=== PATIENT | male | born 1960 | race Caucasian/White ===

== ENCOUNTER → 2016-03-21 | Outpatient (REF) | payer MEDICARE, MEDICAID ==
[~2016-03-21] MED LIST: CYMB1CAP PO; FLEXERIL PO; IBUP600T OR; NEUR100C OR; PENN1.5S2 TOP; TYLE325T5 PO
== END ==
LOC: M SFHCSACK 08:51
PROVIDERS: ATTEND Physician Assistant
DX: Z11.59 Encounter for screening for other viral diseases (principal)

== ENCOUNTER 2016-09-30 17:54 | Emergency (ER) | payer MEDICARE, MEDICAID ==
[~2016-09-30] VITALS: Ht 165.1 cm; Wt 72.7 kg
[2016-09-30 19:22] LABS: ANION GAP 6 MEQ/L (8-16); BLOOD UREA NITROGEN 18 MG/DL (7-18); CALCIUM LEVEL 8.4 MG/DL (8.5-10.1); CARBON DIOXIDE LEVEL 29 MEQ/L (21-32); CHLORIDE LEVEL 106 MEQ/L (98-107); CREATININE FOR GFR 0.96 MG/DL (0.70-1.30); FREE T4 1.13 NG/DL (0.76-1.46); GLOMERULAR FILTRATION RATE > 60.0 (>56); GLUCOSE, FASTING 135 MG/DL (70-105); MAGNESIUM LEVEL 1.8 MG/DL (1.8-2.4); POTASSIUM SERUM 3.8 MEQ/L (3.5-5.1); SODIUM LEVEL 141 MEQ/L (136-145)
[2016-09-30 19:34] LABS: ADD MANUAL DIFFER YES; MEAN CORPUSCULAR HEMOGLOBIN 29.6 pg (27.0-33.0); MEAN CORPUSCULAR HGB CONC 35.3 g/dl (32.0-36.5); PLATELET COUNT, AUTOMATED 165 k/mm3 (150-450); RED CELL DISTRIBUTION WIDTH 13.8 % (11.5-14.5); WHITE BLOOD COUNT 6.6 K/mm3 (4.0-10.0)
[2016-09-30 20:11] LABS: EOSINOPHILS 1 % (0-5)
[2016-09-30 20:15] LABS: PLATELET CLUMPS MODERATE AMT; SMUDGE CELLS 1+
[2016-09-30 21:09] VITALS: BP 129/72
--- NOTE | 2016-09-30 22:10 | REP ---
CHEST, TWO VIEWS: HISTORY: Syncope. COMPARISON: 12/15/2014 The lungs are clear. The heart is normal in size. The pulmonary vasculature is normal in appearance. The bony structure is intact. IMPRESSION: No acute disease. Signed by Michael Fish MD 10/01/2016 08:23 A
--- NOTE | 2016-10-02 08:26 | ECGEPIP ---
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
== END 2016-09-30 21:44 | disposition home or self-care (01) ==
LOC: M ED 17:54
DX: R55 Syncope and collapse (principal); R06.02 Shortness of breath; J45.909 Unspecified asthma, uncomplicated; F32.9 Major depressive disorder, single episode, unspecified; M19.90 Unspecified osteoarthritis, unspecified site; F10.20 Alcohol dependence, uncomplicated; M54.30 Sciatica, unspecified side; M25.561 Pain in right knee; G89.29 Other chronic pain; Z87.891 Personal history of nicotine dependence; Z88.8 Allergy status to other drugs, medicaments and biological substances

== ENCOUNTER → 2016-10-27 | Outpatient (CLI) | payer MEDICARE, MEDICAID ==
[2016-10-27 10:43] LABS: BASO % 0.5 % (0.0-1.0); EOS # 0.1 K/mm3 (0.0-0.50); EOS % 2.2 % (0.0-3.0); LARGE UNSTAINED CELL # 0.2 K/mm3 (0.0-0.4); LARGE UNSTAINED CELL % 3.3 % (0.0-4.0); LYMPH # 1.8 K/mm3 (1.5-4.5); LYMPH % 39.2 % (24.0-44.0); MEAN CORPUSCULAR HEMOGLOBIN 30.1 pg (27.0-33.0); MEAN CORPUSCULAR HGB CONC 35.7 g/dl (32.0-36.5); MEAN CORPUSCULAR VOLUME 84.4 fl (80.0-96.0); MONO # 0.4 K/mm3 (0.0-0.8); MONO % 7.6 % (0.0-5.0); NEUTROPHILS # 2.2 K/mm3 (1.8-7.7); NEUTROPHILS % 47.2 % (36.0-66.0); PLATELET COUNT, AUTOMATED 161 k/mm3 (150-450); RED CELL DISTRIBUTION WIDTH 13.2 % (11.5-14.5); WHITE BLOOD COUNT 4.6 K/mm3 (4.0-10.0)
[2016-10-27 11:09] LABS: ALBUMIN 3.4 GM/DL (3.2-5.2); ALBUMIN/GLOBULIN RATIO 0.97 (1.00-1.93); ALKALINE PHOSPHATASE 93 U/L (45-117); ALT/SGPT 20 U/L (12-78); ANION GAP 5 MEQ/L (8-16); AST/SGOT 14 U/L (15-37); BILIRUBIN,TOTAL 0.2 MG/DL (0.2-1.0); BLOOD UREA NITROGEN 19 MG/DL (7-18); CALCIUM LEVEL 8.9 MG/DL (8.5-10.1); CARBON DIOXIDE LEVEL 32 MEQ/L (21-32); CHLORIDE LEVEL 105 MEQ/L (98-107); CHOLESTEROL LEVEL 155 MG/DL (<200); CREATININE FOR GFR 0.73 MG/DL (0.70-1.30); FREE T4 1.14 NG/DL (0.76-1.46); GLOMERULAR FILTRATION RATE > 60.0 (>56); GLUCOSE, FASTING 86 MG/DL (70-105); POTASSIUM SERUM 4.8 MEQ/L (3.5-5.1); SODIUM LEVEL 142 MEQ/L (136-145); TOTAL PROTEIN 6.9 GM/DL (6.4-8.2); TRIGLYCERIDES LEVEL 275 MG/DL (<150)
== END ==
LOC: M LAB 09:27
PROVIDERS: ATTEND Physician Assistant
DX: F32.9 Major depressive disorder, single episode, unspecified (principal); E78.00 Pure hypercholesterolemia, unspecified

== ENCOUNTER → 2017-01-02 | Outpatient (CLI) | payer MEDICARE, MEDICAID ==
[2017-01-02 09:47] LABS: BASO % 0.6 % (0.0-1.0); EOS # 0.1 10^3/uL (0.0-0.50); IMMATURE GRANULOCYTE % 0.2 % (0-0); LYMPH # 1.4 10^3/uL (1.5-4.5); LYMPH % 30.7 % (24.0-44.0); MEAN CORPUSCULAR HEMOGLOBIN 28.3 pg (27.0-33.0); MEAN CORPUSCULAR HGB CONC 33.9 g/dl (32.0-36.5); MEAN CORPUSCULAR VOLUME 83.6 fl (80.0-96.0); MONO # 0.5 10^3/uL (0.0-0.8); MONO % 10.6 % (0.0-5.0); NEUTROPHILS # 2.5 10^3/uL (1.8-7.7); NEUTROPHILS % 54.9 % (36.0-66.0); PLATELET COUNT, AUTOMATED 146 10^3/uL (150-450); RED CELL DISTRIBUTION WIDTH 13.8 % (11.5-14.5); WHITE BLOOD COUNT 4.6 10^3/uL (4.0-10.0)
[2017-01-02 10:30] LABS: ALBUMIN 3.5 GM/DL (3.2-5.2); ALBUMIN/GLOBULIN RATIO 1.03 (1.00-1.93); ALKALINE PHOSPHATASE 86 U/L (45-117); ALT/SGPT 17 U/L (12-78); ANION GAP 5 MEQ/L (8-16); AST/SGOT 14 U/L (7-37); BILIRUBIN,TOTAL 0.4 MG/DL (0.2-1.0); BLOOD UREA NITROGEN 16 MG/DL (7-18); CALCIUM LEVEL 8.9 MG/DL (8.5-10.1); CARBON DIOXIDE LEVEL 31 MEQ/L (21-32); CHLORIDE LEVEL 102 MEQ/L (98-107); CHOLESTEROL LEVEL 153 MG/DL (<200); CREATININE FOR GFR 0.89 MG/DL (0.70-1.30); FREE T4 1.18 NG/DL (0.76-1.46); GLOMERULAR FILTRATION RATE > 60.0 (>56); GLUCOSE, FASTING 83 MG/DL (70-105); POTASSIUM SERUM 4.5 MEQ/L (3.5-5.1); SODIUM LEVEL 138 MEQ/L (136-145); TOTAL PROTEIN 6.9 GM/DL (6.4-8.2); TRIGLYCERIDES LEVEL 151 MG/DL (<150)
== END ==
LOC: M LAB 08:43
PROVIDERS: ATTEND Physician Assistant
DX: Z13.21 Encounter for screening for nutritional disorder (principal); Z13.220 Encounter for screening for lipoid disorders; Z13.29 Encounter for screening for other suspected endocrine disorder; F32.9 Major depressive disorder, single episode, unspecified

== ENCOUNTER → 2017-06-06 | Outpatient (CLI) | payer MEDICARE, MEDICAID ==
[2017-06-06 09:21] LABS: ALBUMIN 3.9 GM/DL (3.2-5.2); ALKALINE PHOSPHATASE 90 U/L (45-117); ALT/SGPT 19 U/L (12-78); ANION GAP 6 MEQ/L (8-16); AST/SGOT 16 U/L (7-37); BILIRUBIN,TOTAL 0.3 MG/DL (0.2-1.0); BLOOD UREA NITROGEN 22 MG/DL (7-18); CALCIUM LEVEL 8.4 MG/DL (8.5-10.1); CARBON DIOXIDE LEVEL 30 MEQ/L (21-32); CHLORIDE LEVEL 106 MEQ/L (98-107); CHOLESTEROL LEVEL 193 MG/DL (<200); CHOLESTEROL RISK RATIO 4.595 (<5); CREATININE FOR GFR 0.83 MG/DL (0.70-1.30); GLOMERULAR FILTRATION RATE > 60.0 (>56); GLUCOSE, FASTING 90 MG/DL (70-100); HDL CHOLESTEROL 42 MG/DL (>40); LDL CHOLESTEROL 119.8 MG/DL (<100); NON-HDL-C 151 MG/DL; POTASSIUM SERUM 4.5 MEQ/L (3.5-5.1); SODIUM LEVEL 142 MEQ/L (136-145); TOTAL PROTEIN 7.8 GM/DL (6.4-8.2); TRIGLYCERIDES LEVEL 156 MG/DL (<150)
[2017-06-06 09:27] LABS: TOTAL 25(OH) VITAMIN D 33.2 NG/ML (30.0-100.0)
== END ==
LOC: M LAB 08:19
DX: E78.2 Mixed hyperlipidemia (principal); E55.9 Vitamin D deficiency, unspecified
CPT/HCPCS: 80053

== ENCOUNTER 2017-07-13 08:10 | Day surgery (SDC) | payer MEDICARE, MEDICAID ==
[2017-07-13] MEDS: NS 1,000 ML IV (09:03)
[2017-07-13] MEDS ORDERED: LIDOCAINE 2% INJ 100 MG/5 ML SDV (FOR ANES.) As Ordered (09:42)
[2017-07-13] MEDS ORDERED: PROPOFOL 200 MG/20 ML VIAL As Ordered (09:42)
== END 2017-07-13 10:21 | disposition home or self-care (01) ==
LOC: M OPP 08:10
DX: Z12.11 Encounter for screening for malignant neoplasm of colon (principal); K63.5 Polyp of colon; K64.9 Unspecified hemorrhoids; Z86.010 Personal history of colon polyps; E78.00 Pure hypercholesterolemia, unspecified; J45.909 Unspecified asthma, uncomplicated; Z79.899 Other long term (current) drug therapy; M54.5 Low back pain; Z96.652 Presence of left artificial knee joint
CPT/HCPCS: 45385

== ENCOUNTER 2017-11-02 09:20 | Emergency (ER) | payer MEDICARE, MEDICAID | END 2017-11-02 10:03 | disposition home or self-care (01) | LOC: M ED 09:20 | DX: S46.812A Strain of other muscles, fascia and tendons at shoulder and upper arm level, left arm, initial encounter (principal); X58.XXXA Exposure to other specified factors, initial encounter; Y92.89 Other specified places as the place of occurrence of the external cause; J45.909 Unspecified asthma, uncomplicated; Z79.899 Other long term (current) drug therapy; Z79.51 Long term (current) use of inhaled steroids; Z88.8 Allergy status to other drugs, medicaments and biological substances; Z87.891 Personal history of nicotine dependence | CPT/HCPCS: 93005 ==

== ENCOUNTER → 2017-11-16 | Outpatient (CLI) | payer MEDICARE, MEDICAID ==
[2017-11-16 08:45] LABS: BASO % 0.7 % (0.0-1.0); EOS # 0.2 10^3/uL (0.0-0.50); EOS % 3.3 % (0.0-3.0); HEMATOCRIT 42.5 % (42.0-52.0); HEMOGLOBIN 14.5 g/dl (13.5-17.5); IMMATURE GRANULOCYTE % 0.4 % (0-3.0); LYMPH # 1.9 10^3/uL (1.5-4.5); LYMPH % 34.5 % (24.0-44.0); MEAN CORPUSCULAR HEMOGLOBIN 28.3 pg (27.0-33.0); MEAN CORPUSCULAR HGB CONC 34.1 g/dl (32.0-36.5); MONO # 0.5 10^3/uL (0.0-0.8); MONO % 9.9 % (0.0-5.0); NEUTROPHILS # 2.8 10^3/uL (1.8-7.7); NEUTROPHILS % 51.2 % (36.0-66.0); PLATELET COUNT, AUTOMATED 215 10^3/uL (150-450); RED BLOOD COUNT 5.12 10^6/uL (4.30-6.10); RED CELL DISTRIBUTION WIDTH 14.3 % (11.5-14.5); WHITE BLOOD COUNT 5.5 10^3/uL (4.0-10.0)
[2017-11-16 09:19] LABS: ALBUMIN 3.9 GM/DL (3.2-5.2); ALBUMIN/GLOBULIN RATIO 1.05 (1.00-1.93); ALKALINE PHOSPHATASE 88 U/L (45-117); ALT/SGPT 22 U/L (12-78); ANION GAP 7 MEQ/L (8-16); AST/SGOT 17 U/L (7-37); BILIRUBIN,TOTAL 0.4 MG/DL (0.2-1.0); BLOOD UREA NITROGEN 22 MG/DL (7-18); CALCIUM LEVEL 8.9 MG/DL (8.5-10.1); CARBON DIOXIDE LEVEL 29 MEQ/L (21-32); CHLORIDE LEVEL 105 MEQ/L (98-107); CHOLESTEROL LEVEL 162 MG/DL (<200); CHOLESTEROL RISK RATIO 3.951 (<5); CREATININE FOR GFR 0.93 MG/DL (0.70-1.30); GLOMERULAR FILTRATION RATE > 60.0 (>56); GLUCOSE, FASTING 88 MG/DL (70-100); HDL CHOLESTEROL 41 MG/DL (>40); LDL CHOLESTEROL 93 MG/DL (<100); NON-HDL-C 121 MG/DL; POTASSIUM SERUM 4.3 MEQ/L (3.5-5.1); SODIUM LEVEL 141 MEQ/L (136-145); TOTAL PROTEIN 7.6 GM/DL (6.4-8.2); TRIGLYCERIDES LEVEL 138 MG/DL (<150)
[2017-11-16 10:45] LABS: TOTAL 25(OH) VITAMIN D 36.4 NG/ML (30.0-100.0)
== END ==
LOC: M LAB 08:09
DX: J45.20 Mild intermittent asthma, uncomplicated (principal); E78.2 Mixed hyperlipidemia; E55.9 Vitamin D deficiency, unspecified; Z79.899 Other long term (current) drug therapy
CPT/HCPCS: 80053

== ENCOUNTER 2018-03-31 11:24 | Emergency (ER) | payer MEDICARE, MEDICAID ==
[~2018-03-31] VITALS: Ht 165.1 cm; Wt 77.3 kg
[~2018-03-31 11:24] MED LIST changes: +ADV250INH INH; +CYCL10TA PO; +NAPR-50 PO; +PROAAER10 INH; +SIMV20TA2 PO
[2018-03-31] MEDS ORDERED: NS 1,000 ML IV SCH (12:53)
[2018-03-31] MEDS ORDERED: IPRATROPIUM 0.5MG/ALBUTEROL 2.5MG INH SOL UD 3ML (DUONEB)(J7620) NEB ONE (13:00)
[2018-03-31] MEDS ORDERED: ASPIRIN 81 MG CHEW TABLET PO ONE (13:00)
[2018-03-31 13:02] LABS: BASO % 0.6 % (0.0-1.0); EOS # 0.1 10^3/uL (0.0-0.50); EOS % 2.4 % (0.0-3.0); HEMATOCRIT 43.7 % (42.0-52.0); LYMPH # 1.9 10^3/uL (1.5-4.5); LYMPH % 37.6 % (24.0-44.0); MEAN CORPUSCULAR HEMOGLOBIN 28.2 pg (27.0-33.0); MEAN CORPUSCULAR HGB CONC 34.3 g/dl (32.0-36.5); MEAN CORPUSCULAR VOLUME 82.3 fl (80.0-96.0); MONO # 0.4 10^3/uL (0.0-0.8); MONO % 8.5 % (0.0-5.0); NEUTROPHILS # 2.5 10^3/uL (1.8-7.7); NEUTROPHILS % 50.3 % (36.0-66.0); PLATELET COUNT, AUTOMATED 185 10^3/uL (150-450); RED BLOOD COUNT 5.31 10^6/uL (4.30-6.10)
[2018-03-31 13:18] LABS: ALBUMIN 4.1 GM/DL (3.2-5.2); ALT/SGPT 22 U/L (12-78); BILIRUBIN,DIRECT < 0.1 MG/DL (0.0-0.2); BILIRUBIN,TOTAL 0.3 MG/DL (0.2-1.0); BLOOD UREA NITROGEN 14 MG/DL (7-18); CALCIUM LEVEL 8.6 MG/DL (8.5-10.1); CARBON DIOXIDE LEVEL 27 MEQ/L (21-32); CHLORIDE LEVEL 102 MEQ/L (98-107); CPK CREATINE PHOSPHOKINASE 73 U/L (39-308); CREATININE FOR GFR 0.85 MG/DL (0.70-1.30); GLOMERULAR FILTRATION RATE > 60.0 (>56); GLUCOSE, FASTING 92 MG/DL (70-100); MB/CK RELATIVE INDEX 2.19 (< OR =4); POTASSIUM SERUM 4.1 MEQ/L (3.5-5.1); SODIUM LEVEL 138 MEQ/L (136-145); TOTAL PROTEIN 7.9 GM/DL (6.4-8.2); TROPONIN I < 0.02 NG/ML (< 0.10)
--- NOTE | 2018-03-31 13:22 | REP ---
PA and lateral chest: Comparison is 2016. The lung hale are clear. The cardiac size is normal. The ray, mediastinum, and skeletal structures are unremarkable. Impression: Negative PA and lateral chest. There is no interval change. Electronically Signed by Lorenzo Nichols MD 03/31/2018 01:14 P
[2018-03-31 13:27] LABS: PROTHROMBIN TIME 13.3 SECONDS (12.1-14.4)
[2018-03-31 13:31] LABS: ABG BASE EXCESS -0.6 (-2.0-2.0); ABG HCO3 23.1 MEQ/L (22.0-26.0); ABG PARTIAL PRESSURE CO2 35.7 mmHg (35.0-45.0); ABG PARTIAL PRESSURE O2 74.4 mmHg (75.0-100.0); ABG STANDARD HCO3 23.9 MEQ/L (22.0-26.0); ABG TOTAL CO2 24.2 MEQ/L (22.0-29.0); ABG pH (ARTERIAL) 7.429 UNITS (7.350-7.450)
[2018-03-31 13:35] LABS: D-DIMER QUANT < 270 ng/ml (<500)
[2018-03-31] MEDS ORDERED: AVEL1TAB3 PO (14:05)
[2018-03-31] MEDS ORDERED: PRED20TA PO (14:05)
[2018-03-31 14:18] VITALS: BP 131/84
--- NOTE | 2018-04-01 17:41 | ECGEPIP ---
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
== END 2018-03-31 14:24 | disposition home or self-care (01) ==
LOC: M ED 11:24
DX: J44.1 Chronic obstructive pulmonary disease with (acute) exacerbation (principal)

== ENCOUNTER → 2018-04-17 | Outpatient (CLI) | payer MEDICARE, MEDICAID ==
[~2018-04-17] MED LIST changes: +AVEL1TAB3 PO; +PRED20TA PO
--- NOTE | 2018-04-20 09:56 | SLEEPCENT ---
DATE OF PROCEDURE: 04/17/2018 ORDERED BY: ISHA Pace Nocturnal polysomnography was performed for evaluation of sleep physiology in this patient with excessive somnolence and nonrestorative sleep. 8 hours and 35 minutes of data were reviewed. There were 418 minutes of sleep identified. Sleep latency was prolonged at 23 minutes. Rapid eye movement (REM) latency was prolonged at 138 minutes. Sleep architecture was fragmented. Overall sleep efficiency 82%. The patient's electrocardiogram showed an irregular supraventricular rhythm, average heart rate 72 beats per minute. EEG showed fairly normal waveforms for awake and sleep. There were 210 respiratory events identified of 10 seconds in duration or greater for an apnea-hypopnea index of 30.1. The events were mixed; 82 of the 210 were mixed or central events. The events were not exclusive to sleep stage nor body posture. Arousals from respiratory events occurred 18.8 times per hour and oxygen desaturations were seen into the low 80s. Limb activity arousal index was 4.2. 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 Apnea-hypopnea index 30.1. RECOMMENDATIONS: The patient should be encouraged to return to the sleep disorder center for pressure therapy. Given the occurrence of mixed and central apneas the use of a bilevel device and backup rate may be necessary.
== END ==
LOC: M SLEEP 19:47
PROVIDERS: ATTEND Nurse Practitioner Family
DX: G47.31 Primary central sleep apnea (principal)

== ENCOUNTER → 2018-05-19 | Outpatient (CLI) | payer MEDICARE, MEDICAID ==
[~2018-05-19] MED LIST changes: -NAPR-50 PO; +NAPR-837 PO
--- NOTE | 2018-05-22 21:46 | SLEEPCENT ---
DATE OF PROCEDURE: 05/19/2018 Ordered by: NAHUM Pace Nocturnal polysomnography was performed for the titration of pressure therapy in this patient with obstructive sleep apnea syndrome. Apnea-hypopnea index of 30.1. For testing, a ResMed Quattro full face mask of small size was used, 4 cm of water pressure were applied to the circuit and the lights were extinguished. 8 hours and 39 minutes of data were reviewed. There were 371 minutes of sleep identified. Sleep latency was short at 5.5 minutes. Rapid eye movement (REM) latency was mildly prolonged at 123 minutes. Sleep architecture improved late in the study with optimal pressure therapy. There was three REM cycles noted. Overall sleep efficiency was 72.6%. The electrocardiogram showed a sinus rhythm with an average heart rate of 68 beats per minute. EEG showed normal waveforms for awake and sleep stages. Respiratory events were fully palliated with C-PAP at a pressure of +9. Some limb activity was noted throughout the study. Limb movement arousal index on this occasion was 10.5, up from the diagnostic night. IMPRESSION Obstructive sleep apnea syndrome (G47.33) RECOMMENDATION Nightly use of pressure therapy, 9 cm of water.
== END ==
LOC: M SLEEP 20:00
PROVIDERS: ATTEND Nurse Practitioner Family
DX: G47.33 Obstructive sleep apnea (adult) (pediatric) (principal)

== ENCOUNTER → 2018-06-15 | Outpatient (REF) | payer MEDICARE, MEDICAID ==
[2018-06-15 15:24] LABS: ALT/SGPT 23 U/L (12-78); BILIRUBIN,TOTAL 0.3 MG/DL (0.2-1.0); BLOOD UREA NITROGEN 20 MG/DL (7-18); CALCIUM LEVEL 8.8 MG/DL (8.5-10.1); CARBON DIOXIDE LEVEL 31 MEQ/L (21-32); CHLORIDE LEVEL 104 MEQ/L (98-107); CHOLESTEROL LEVEL 167 MG/DL (<200); CHOLESTEROL RISK RATIO 3.976 (<5); CREATININE FOR GFR 0.88 MG/DL (0.70-1.30); GLOMERULAR FILTRATION RATE > 60.0 (>56); GLUCOSE, FASTING 87 MG/DL (70-100); HDL CHOLESTEROL 42 MG/DL (>40); LDL CHOLESTEROL 92 MG/DL (<100); NON-HDL-C 125 MG/DL; POTASSIUM SERUM 4.6 MEQ/L (3.5-5.1); SODIUM LEVEL 138 MEQ/L (136-145); TOTAL PROTEIN 7.5 GM/DL (6.4-8.2); TRIGLYCERIDES LEVEL 165 MG/DL (<150)
[2018-06-15 15:26] LABS: BASO % 0.5 % (0.0-1.0); EOS # 0.1 10^3/uL (0.0-0.50); EOS % 3.3 % (0.0-3.0); HEMATOCRIT 43.2 % (42.0-52.0); HEMOGLOBIN 14.4 g/dl (13.5-17.5); LYMPH # 1.7 10^3/uL (1.5-4.5); LYMPH % 40.7 % (24.0-44.0); MEAN CORPUSCULAR HEMOGLOBIN 28.2 pg (27.0-33.0); MEAN CORPUSCULAR HGB CONC 33.3 g/dl (32.0-36.5); MEAN CORPUSCULAR VOLUME 84.5 fl (80.0-96.0); MONO # 0.5 10^3/uL (0.0-0.8); NEUTROPHILS # 1.9 10^3/uL (1.8-7.7); PLATELET COUNT, AUTOMATED 138 10^3/uL (150-450); RED BLOOD COUNT 5.11 10^6/uL (4.30-6.10); WHITE BLOOD COUNT 4.3 10^3/uL (4.0-10.0)
== END ==
LOC: M SFHCSACK 08:57
PROVIDERS: ATTEND Physician Assistant
DX: J45.20 Mild intermittent asthma, uncomplicated (principal); E78.2 Mixed hyperlipidemia; Z12.5 Encounter for screening for malignant neoplasm of prostate; E55.9 Vitamin D deficiency, unspecified
CPT/HCPCS: 36415; 80053; 80061; 82306; 85025; G0103

== ENCOUNTER → 2018-09-24 | Outpatient (REF) | payer MEDICARE, MEDICAID ==
[2018-09-24 14:33] LABS: BASO % 0.4 % (0.0-1.0); EOS # 0.1 10^3/uL (0.0-0.50); EOS % 2.7 % (0.0-3.0); HEMOGLOBIN 14.5 g/dl (13.5-17.5); LYMPH # 1.8 10^3/uL (1.5-4.5); LYMPH % 39.7 % (24.0-44.0); MEAN CORPUSCULAR HGB CONC 33.7 g/dl (32.0-36.5); MONO # 0.5 10^3/uL (0.0-0.8); MONO % 11.2 % (0.0-5.0); NEUTROPHILS % 45.6 % (36.0-66.0); PLATELET COUNT, AUTOMATED 164 10^3/uL (150-450); WHITE BLOOD COUNT 4.5 10^3/uL (4.0-10.0)
[2018-09-24 14:57] LABS: ALBUMIN 3.7 GM/DL (3.2-5.2); ALT/SGPT 20 U/L (12-78); BILIRUBIN,TOTAL 0.2 MG/DL (0.2-1.0); BLOOD UREA NITROGEN 19 MG/DL (7-18); CALCIUM LEVEL 9.2 MG/DL (8.5-10.1); CARBON DIOXIDE LEVEL 31 MEQ/L (21-32); CHLORIDE LEVEL 106 MEQ/L (98-107); CHOLESTEROL LEVEL 156 MG/DL (<200); CHOLESTEROL RISK RATIO 3.627 (<5); CREATININE FOR GFR 0.82 MG/DL (0.70-1.30); GLOMERULAR FILTRATION RATE > 60.0 (>56); GLUCOSE, FASTING 88 MG/DL (70-100); HDL CHOLESTEROL 43 MG/DL (>40); LDL CHOLESTEROL 78 MG/DL (<100); NON-HDL-C 113 MG/DL; POTASSIUM SERUM 4.5 MEQ/L (3.5-5.1); SODIUM LEVEL 140 MEQ/L (136-145); TOTAL PROTEIN 7.3 GM/DL (6.4-8.2); TRIGLYCERIDES LEVEL 177 MG/DL (<150)
[2018-09-24 15:04] LABS: TOTAL 25(OH) VITAMIN D 83.5 NG/ML (30.0-100.0)
== END ==
LOC: M SFHCSACK 09:48
PROVIDERS: ATTEND Physician Assistant
DX: J45.20 Mild intermittent asthma, uncomplicated (principal); E78.2 Mixed hyperlipidemia; E55.9 Vitamin D deficiency, unspecified

== ENCOUNTER 2019-02-08 13:04 | Emergency (ER) | payer MEDICARE, MEDICAID ==
[~2019-02-08] VITALS: Ht 165.1 cm; Wt 75.6 kg
[~2019-02-08 13:04] MED LIST changes: -SIMV20TA2 PO; +SIMV20TA22 PO
[2019-02-08 13:05] VITALS: BP 145/87
== END 2019-02-08 16:19 | disposition left against medical advice (07) ==
LOC: M ED 13:04
DX: Z53.21 Procedure and treatment not carried out due to patient leaving prior to being seen by health care provider (principal)

== ENCOUNTER 2019-02-11 12:24 | Emergency (ER) | payer MEDICARE, MEDICAID ==
[~2019-02-11] VITALS: Ht 165.1 cm; Wt 73.0 kg
[2019-02-11] MEDS ORDERED: BENZONATATE 100 MG CAP PO ONE (13:30)
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
[2019-02-11 14:01] LABS: BASO % 0.6 % (0.0-1.0); EOS % 0.8 % (0.0-3.0); HEMATOCRIT 49.6 % (42.0-52.0); HEMOGLOBIN 16.2 g/dl (13.5-17.5); LYMPH # 1.4 10^3/uL (1.5-5.0); MEAN CORPUSCULAR HEMOGLOBIN 27.5 pg (27.0-33.0); MEAN CORPUSCULAR HGB CONC 32.7 g/dl (32.0-36.5); MEAN CORPUSCULAR VOLUME 84.1 fl (80.0-96.0); MONO # 0.8 10^3/uL (0.0-0.8); MONO % 15.5 % (0.0-5.0); NEUTROPHILS # 2.8 10^3/uL (1.5-8.5); NEUTROPHILS % 55.5 % (36.0-66.0); PLATELET COUNT, AUTOMATED 236 10^3/uL (150-450)
[2019-02-11 14:19] LABS: BLOOD UREA NITROGEN 19 MG/DL (7-18); CALCIUM LEVEL 9.2 MG/DL (8.5-10.1); CARBON DIOXIDE LEVEL 27 MEQ/L (21-32); CHLORIDE LEVEL 103 MEQ/L (98-107); CREATININE FOR GFR 0.97 MG/DL (0.70-1.30); GLOMERULAR FILTRATION RATE > 60.0 (>56); GLUCOSE, FASTING 66 MG/DL (70-100); POTASSIUM SERUM 4.5 MEQ/L (3.5-5.1); SODIUM LEVEL 136 MEQ/L (136-145)
[2019-02-11] MEDS ORDERED: NAPR-837 PO (14:46)
[2019-02-11] MEDS ORDERED: BENZ200C70 PO (14:46)
[2019-02-11 14:51] VITALS: BP 140/89
== END 2019-02-11 14:52 | disposition home or self-care (01) ==
LOC: M ED 12:24
DX: K40.91 Unilateral inguinal hernia, without obstruction or gangrene, recurrent (principal); Z88.8 Allergy status to other drugs, medicaments and biological substances; Z79.899 Other long term (current) drug therapy

== ENCOUNTER → 2019-03-06 | Outpatient (CLI) | payer MEDICARE, MEDICAID ==
[~2019-03-06] MED LIST changes: +ADV100INH INH; +BENZ200C70 PO; +NAPR-885 PO; +VITA50005 PO
[2019-03-06 09:31] LABS: BASO % 0.5 % (0.0-1.0); EOS # 0.1 10^3/uL (0.0-0.5); EOS % 1.3 % (0.0-3.0); HEMATOCRIT 44.9 % (42.0-52.0); HEMOGLOBIN 15.1 g/dl (13.5-17.5); LYMPH # 1.7 10^3/uL (1.5-5.0); LYMPH % 30.7 % (24.0-44.0); MEAN CORPUSCULAR HEMOGLOBIN 27.8 pg (27.0-33.0); MEAN CORPUSCULAR HGB CONC 33.6 g/dl (32.0-36.5); MEAN CORPUSCULAR VOLUME 82.5 fl (80.0-96.0); MONO # 0.5 10^3/uL (0.0-0.8); MONO % 8.8 % (0.0-5.0); NEUTROPHILS # 3.2 10^3/uL (1.5-8.5); NEUTROPHILS % 58.3 % (36.0-66.0); PLATELET COUNT, AUTOMATED 150 10^3/uL (150-450); RED BLOOD COUNT 5.44 10^6/uL (4.30-6.10); WHITE BLOOD COUNT 5.5 10^3/uL (4.0-10.0)
[2019-03-06 10:00] LABS: ALBUMIN 3.6 GM/DL (3.2-5.2); ALT/SGPT 20 U/L (12-78); BILIRUBIN,TOTAL 0.2 MG/DL (0.2-1.0); BLOOD UREA NITROGEN 19 MG/DL (7-18); CALCIUM LEVEL 8.8 MG/DL (8.5-10.1); CARBON DIOXIDE LEVEL 27 MEQ/L (21-32); CHLORIDE LEVEL 105 MEQ/L (98-107); CHOLESTEROL LEVEL 177 MG/DL (<200); CHOLESTEROL RISK RATIO 3.765 (<5); CREATININE FOR GFR 0.94 MG/DL (0.70-1.30); GLOMERULAR FILTRATION RATE > 60.0 (>56); GLUCOSE, FASTING 93 MG/DL (70-100); HDL CHOLESTEROL 47 MG/DL (>40); LDL CHOLESTEROL 101 MG/DL (<100); NON-HDL-C 130 MG/DL; POTASSIUM SERUM 4.3 MEQ/L (3.5-5.1); SODIUM LEVEL 138 MEQ/L (136-145); TOTAL PROTEIN 7.3 GM/DL (6.4-8.2); TRIGLYCERIDES LEVEL 146 MG/DL (<150)
[2019-03-06 10:17] LABS: TOTAL 25(OH) VITAMIN D 49.4 NG/ML (30.0-100.0)
== END ==
LOC: M LAB 08:47
PROVIDERS: ATTEND Physician Assistant
DX: E78.2 Mixed hyperlipidemia (principal); E55.9 Vitamin D deficiency, unspecified; J45.20 Mild intermittent asthma, uncomplicated; Z79.51 Long term (current) use of inhaled steroids

== ENCOUNTER → 2019-03-08 | Outpatient (CLI) | payer MEDICARE, MEDICAID ==
--- NOTE | 2019-03-09 11:03 | ECGEPIP ---
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
== END ==
LOC: M EKG 15:32
PROVIDERS: ATTEND Anesthesiology
DX: E78.00 Pure hypercholesterolemia, unspecified (principal)

== ENCOUNTER 2019-03-18 06:42 | Day surgery (SDC) | payer MEDICARE, MEDICAID ==
[~2019-03-18] VITALS: Ht 165.1 cm; Wt 73.4 kg
[~2019-03-18 06:42] MED LIST changes: +ACETAMINOPHEN 1000MG 100ML IV BTL (OFIRMEV) (J0131 PER 10MG) As Ordered ONE; +LIDOCAINE 2% INJ 100 MG/5 ML SDV (FOR ANES.) As Ordered ONE; +MIDAZOLAM INJ 2 MG/2 ML VIAL (J2250) As Ordered ONE; +ONDANSETRON 4MG/2ML VIAL (J2405) As Ordered ONE; +ROCURONIUM BROMIDE 50 MG/5 ML VIAL As Ordered ONE; +SUGAMMADEX SODIUM 500 MG/5 ML VIAL (BRIDION) As Ordered ONE; +dexameTHASONE 4 MG/ML 1ML VIAL (J1100) As Ordered ONE; +fentaNYL 250 MCG/5 ML INJECTION (J3010) As Ordered ONE; +propofoL 200 MG/20 ML VIAL As Ordered ONE
[2019-03-18] MEDS ORDERED: ceFAZolin SOD 2 GM in IV 1 EA IV ONE (07:00)
[2019-03-18] MEDS ORDERED: BUPIVACAINE/EPIN 0.25% 30 ML VIAL As Ordered ONE (08:06)
[2019-03-18] MEDS ORDERED: oxyCODONE 5MG TAB PO PRN (10:00)
[2019-03-18] MEDS ORDERED: ONDANSETRON 4MG/2ML VIAL (J2405) IV PRN (10:00)
[2019-03-18] MEDS ORDERED: fentaNYL 100 MCG/2 ML INJECTION (J3010) IV PRN (10:00)
[2019-03-18] MEDS ORDERED: NORCO, ANEXSIA 5/325MG TABLET (HYDROcodone/ACETAMINOPHEN) PO PRN (10:00)
[2019-03-18] MEDS ORDERED: LR 1,000 ML IV SCH (10:00)
--- NOTE | 2019-03-18 10:39 | RO ---
DATE OF PROCEDURE: 03/18/2019 PREOPERATIVE DIAGNOSIS: Left inguinal hernia. POSTOPERATIVE DIAGNOSIS: Left inguinal hernia. PROCEDURE: Robotic left inguinal hernia repair. SURGEON: Dr. Lorenzo Cali NEWSCAST PRODUCER: Nelia Martinez ANESTHESIA: General. ESTIMATED BLOOD LOSS: 5. COMPLICATIONS: None. INDICATIONS FOR PROCEDURE: The patient is a 58-year-old male who presents with a large lump in the left groin and found to have a reducible left inguinal hernia. Recommendation was to proceed with robotic left inguinal hernia repair. Risks and benefits of the procedure not limited to, but including bleeding, infection, hernia recurrence, hernia formation, damage to surrounding structures, and need for further surgery were discussed in detail with the patient. In formed consent was obtained and the procedure planned. OPERATIVE PROCEDURE: The patient was brought to operating room seven. After sufficient sedation the abdomen sterilely prepped and draped. Next a time out done to confirm proper patient and proper procedure. Following that, an 8 mm incision made in the left upper quadrant, Veress needle inserted and the abdomen was then inflated to 15 mmHg. Next, an 8 mm incision was made supraumbilically in the midline. The 8 mm OptiVu robotic port was used to gain access to the abdomen. Once the abdomen was entered, Veress needle site was examined and there were no signs of any injury. The Veress needle was then removed and replaced with another 8 mm port. The third 8 mm port was placed in the right midabdomen. Once all the ports were in place, the robot was docked to the ports. Next from the console, in the left groin there was an obvious large indirect defect identified. The sigmoid colon was reduced from it. The peritoneum was then opened with a curved incision just superior to the inguinal canal. The preperitoneal space was dissected free medially and laterally all way to the pubic symphysis. The hernia sac was then dissected free from the rest of the cord structures. Once that was completely reduced, the Bard 3DMax light medium size mesh was placed into the preperitoneal space on the left side and sutured to the pubic symphysis with a #2-0 Vicryl suture. The peritoneum was then closed over top of the mesh encompassing the redundant hernia sac into the closure. Once this was all completed, the abdomen was desufflated. The skin incisions were closed with #4-0 Vicryl subcuticular sutures. The abdomen was cleaned and dried. Steri-Strips, 4x4 and tape applied, thus ending the procedure.
[2019-03-18 12:05] VITALS: BP 149/89
== END 2019-03-18 12:20 | disposition home or self-care (01) ==
LOC: M SDC 06:42
PROVIDERS: ATTEND Surgery
DX: K40.90 Unilateral inguinal hernia, without obstruction or gangrene, not specified as recurrent (principal); J45.909 Unspecified asthma, uncomplicated; Z79.899 Other long term (current) drug therapy; F17.218 Nicotine dependence, cigarettes, with other nicotine-induced disorders; F12.10 Cannabis abuse, uncomplicated
CPT/HCPCS: 49650; C1781; J0131; J0690; J1100; J2250; J2405; J3010

== ENCOUNTER 2019-04-14 21:36 | Emergency (ER) | payer MEDICARE, MEDICAID ==
[~2019-04-14] VITALS: Ht 165.1 cm; Wt 72.1 kg
[~2019-04-14 21:36] MED LIST changes: -ACETAMINOPHEN 1000MG 100ML IV BTL (OFIRMEV) (J0131 PER 10MG) As Ordered ONE; -LIDOCAINE 2% INJ 100 MG/5 ML SDV (FOR ANES.) As Ordered ONE; -MIDAZOLAM INJ 2 MG/2 ML VIAL (J2250) As Ordered ONE; -ONDANSETRON 4MG/2ML VIAL (J2405) As Ordered ONE; -ROCURONIUM BROMIDE 50 MG/5 ML VIAL As Ordered ONE; -SUGAMMADEX SODIUM 500 MG/5 ML VIAL (BRIDION) As Ordered ONE; -dexameTHASONE 4 MG/ML 1ML VIAL (J1100) As Ordered ONE; -fentaNYL 250 MCG/5 ML INJECTION (J3010) As Ordered ONE; -propofoL 200 MG/20 ML VIAL As Ordered ONE
[2019-04-14] MEDS ORDERED: methocarbamoL 750 MG TAB PO ONE (22:45)
[2019-04-14] MEDS ORDERED: KETOROLAC 60 MG/2 ML VIAL (J1885) IM ONE (22:45)
[2019-04-14] MEDS ORDERED: KETO10TAB PO (23:15)
[2019-04-14] MEDS ORDERED: ROBA750T4 PO (23:15)
[2019-04-14 23:28] VITALS: BP 145/74
== END 2019-04-14 23:35 | disposition home or self-care (01) ==
LOC: M ED 21:36
DX: M54.5 Low back pain (principal); G89.29 Other chronic pain; M79.604 Pain in right leg; M79.605 Pain in left leg; K40.90 Unilateral inguinal hernia, without obstruction or gangrene, not specified as recurrent; Z98.890 Other specified postprocedural states; J45.909 Unspecified asthma, uncomplicated; E78.5 Hyperlipidemia, unspecified; F17.210 Nicotine dependence, cigarettes, uncomplicated; Z79.899 Other long term (current) drug therapy; Z79.51 Long term (current) use of inhaled steroids
CPT/HCPCS: 96372; 99283; J1885

== ENCOUNTER → 2019-10-23 | Outpatient (CLI) | payer MEDICARE, MEDICAID ==
[~2019-10-23] MED LIST changes: +CYCL-707 PO; -CYCL10TA PO; +KETO10TAB PO; +ROBA750T4 PO
--- NOTE | 2019-11-07 07:33 | REP ---
LIMITED PELVIC ULTRASOUND CLINICAL: Left groin palpable mass. TECHNIQUE: Real-time christianson scale and color evaluation using linear high frequency transducer. FINDINGS: Directed ultrasound examination at the left groin overlying the palpable mass demonstrates a hypoechoic circumscribed lesion in the subcutaneous tissue lateral to the spermatic cord, measuring approximately 2.8 x 2.0 x 2.5 cm with relatively homogeneous internal echotexture and moderate increased through transmission. This finding itself is essentially avascular, although surrounding capsular vessels are suggested. Finding is nonspecific by ultrasound and may represent mass versus complex cyst, including possible seroma related to prior surgery. IMPRESSION: Complex hypoechoic cyst versus mass. Finding is nonspecific by ultrasound. Clinical correlation is recommended. MTDD
== END ==
LOC: M RAD 07:00
PROVIDERS: ATTEND Surgery
DX: R19.04 Left lower quadrant abdominal swelling, mass and lump (principal)

== ENCOUNTER 2019-11-19 13:09 | Emergency (ER) | payer MEDICARE, MEDICAID ==
[~2019-11-19] VITALS: Ht 165.1 cm; Wt 69.0 kg
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
[2019-11-19 14:56] VITALS: BP 138/91
== END 2019-11-19 15:00 | disposition home or self-care (01) ==
LOC: M ED 13:09
DX: S63.614A Unspecified sprain of right ring finger, initial encounter (principal); S60.221A Contusion of right hand, initial encounter; M19.041 Primary osteoarthritis, right hand; W22.09XA Striking against other stationary object, initial encounter; Y92.094 Garage of other non-institutional residence as the place of occurrence of the external cause; Z87.828 Personal history of other (healed) physical injury and trauma; E78.5 Hyperlipidemia, unspecified; J45.909 Unspecified asthma, uncomplicated; F32.9 Major depressive disorder, single episode, unspecified; F10.20 Alcohol dependence, uncomplicated; M54.30 Sciatica, unspecified side; E55.9 Vitamin D deficiency, unspecified; F17.200 Nicotine dependence, unspecified, uncomplicated; Z79.899 Other long term (current) drug therapy; Z79.51 Long term (current) use of inhaled steroids

== ENCOUNTER 2020-06-28 18:59 | Emergency (ER) | payer MEDICARE, MEDICAID ==
[~2020-06-28] VITALS: Ht 165.1 cm; Wt 63.6 kg
[2020-06-28 19:00] VITALS: BP 139/90
[2020-06-28] MEDS ORDERED: KETOROLAC 60MG 2ML VIAL IM ONE (20:20)
--- NOTE | 2020-06-28 21:51 | REPVR ---
PROCEDURE INFORMATION: Exam: XR Left Hip Exam date and time: 06/28/2020 8:50 PM Age: 59 years old Clinical indication: Left hip; Patient HX: Increasing hip pain for 4 months; Additional info: Severe L hip pain, no known injury TECHNIQUE: Imaging protocol: XR Left hip. Views: 2 or 3 views hip with pelvis when performed. COMPARISON: CT ABD PELVIS WITH CONTRAST 11/19/2013 8:39 AM FINDINGS: Bones/joints: There is no fracture or dislocation of the left hip. The left hip joint space and alignment are maintained. No arthropathy involving the left hip is noted. There is no radiographic evidence for osteonecrosis of the left hip. There are no bony destructive changes. Soft tissues: Unremarkable. IMPRESSION: No acute radiographic findings involving the left hip. Electronically signed by: Kiel Wetzel On 06/28/2020 21:51:24 PM
== END 2020-06-28 21:04 | disposition left against medical advice (07) ==
LOC: M ED 18:59
DX: M54.5 Low back pain (principal); M79.605 Pain in left leg; Z53.9 Procedure and treatment not carried out, unspecified reason
CPT/HCPCS: 73502; 96372; 99281; J1885

== ENCOUNTER → 2020-07-27 | Outpatient (CLI) | payer MEDICARE, MEDICAID ==
[~2020-07-27] MED LIST changes: +ERGO500029 PO; -VITA50005 PO
--- NOTE | 2020-07-27 10:29 | REP ---
INDICATION: PARESTHESIA OF SKIN. COMPARISON: 01/09/2009 TECHNIQUE: Five views FINDINGS: There is moderate to severe disc space narrowing at L4-5 with moderate disc space narrowing at all other levels. There is anterior lipping at all levels. Vertebral body height and alignment is within normal limits. Degenerative facet joint changes are seen bilaterally at every level particularly L4-5 and L5-S1 marginal osteophyte formation is seen bilaterally at every level particularly on the right at L2-3. The pedicles are intact bilaterally. There is no spondylolysis or spondylolisthesis. IMPRESSION: Chronic changes which have increased compared to the prior exam as described above. <Electronically signed by James Blanton > 07/27/20 [id number]
[2020-07-27 12:36] LABS: ALBUMIN 3.6 GM/DL (3.2-5.2); ALT/SGPT 24 U/L (12-78); BILIRUBIN,TOTAL 0.2 MG/DL (0.2-1.0); BLOOD UREA NITROGEN 24 MG/DL (7-18); CARBON DIOXIDE LEVEL 30 MEQ/L (21-32); CHLORIDE LEVEL 110 MEQ/L (98-107); CHOLESTEROL LEVEL 149 MG/DL (<200); CREATININE FOR GFR 0.84 MG/DL (0.70-1.30); GLOMERULAR FILTRATION RATE > 60.0 (>56); GLUCOSE, FASTING 82 MG/DL (70-100); HDL CHOLESTEROL 50 MG/DL (>40); LDL CHOLESTEROL 85 MG/DL (<100); NON-HDL-C 99 MG/DL; POTASSIUM SERUM 4.4 MEQ/L (3.5-5.1); SODIUM LEVEL 143 MEQ/L (136-145); TOTAL PROTEIN 7.3 GM/DL (6.4-8.2); TRIGLYCERIDES LEVEL 72 MG/DL (<150)
[2020-07-27 14:45] LABS: TOTAL 25(OH) VITAMIN D 33.6 NG/ML (30.0-100.0); VITAMIN B12 LEVEL 576 PG/ML (247-911)
== END ==
LOC: M LAB 09:22
PROVIDERS: ATTEND Family Medicine
DX: R20.2 Paresthesia of skin (principal); E78.00 Pure hypercholesterolemia, unspecified; Z12.5 Encounter for screening for malignant neoplasm of prostate
CPT/HCPCS: 36415; 72110; 80053; 80061; 82306; 82607; 84443; 87521; G0103

== ENCOUNTER 2020-10-18 16:49 | Emergency (ER) | payer MEDICARE, MEDICAID ==
[~2020-10-18] VITALS: Ht 165.1 cm; Wt 71.9 kg
[2020-10-18] MEDS ORDERED: MORPHINE 4 MG/ML 1ML VIAL/SYRINGE (J2270) IV PRN (18:25)
[2020-10-18] MEDS ORDERED: BOOSTRIX/ADACEL VACCINE (DIPHTH/PERTUSS/ACELL/TETANUS) 0.5ML SYR IM ONE (18:25)
[2020-10-18] MEDS ORDERED: NS 500 ML IV ONE (18:25)
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
[2020-10-18] MEDS ORDERED: ISOVUE-370 76% 100ML VIAL As Ordered ONE (18:44)
[2020-10-18 18:54] LABS: BASO % 0.6 % (0.0-1.0); EOS # 0.1 10^3/uL (0.0-0.5); EOS % 2.5 % (0.0-3.0); HEMATOCRIT 43.1 % (42.0-52.0); HEMOGLOBIN 14.6 g/dl (13.5-17.5); LYMPH # 1.3 10^3/uL (1.5-5.0); LYMPH % 26.2 % (24.0-44.0); MEAN CORPUSCULAR HEMOGLOBIN 28.1 pg (27.0-33.0); MEAN CORPUSCULAR HGB CONC 33.9 g/dl (32.0-36.5); MONO # 0.6 10^3/uL (0.0-0.8); MONO % 13.1 % (2.0-8.0); NEUTROPHILS # 2.8 10^3/uL (1.5-8.5); NEUTROPHILS % 56.8 % (36.0-66.0); PLATELET COUNT, AUTOMATED 228 10^3/uL (150-450); RED BLOOD COUNT 5.19 10^6/uL (4.30-6.10); WHITE BLOOD COUNT 4.9 10^3/uL (4.0-10.0)
[2020-10-18 19:17] LABS: ALBUMIN 3.5 GM/DL (3.2-5.2); ALT/SGPT 27 U/L (12-78); BILIRUBIN,DIRECT < 0.1 MG/DL (0.0-0.2); BILIRUBIN,TOTAL 0.3 MG/DL (0.2-1.0); BLOOD UREA NITROGEN 29 MG/DL (7-18); CARBON DIOXIDE LEVEL 25 MEQ/L (21-32); CHLORIDE LEVEL 108 MEQ/L (98-107); CREATININE FOR GFR 0.79 MG/DL (0.70-1.30); GLOMERULAR FILTRATION RATE > 60.0 (>49); GLUCOSE, FASTING 103 MG/DL (70-100); POTASSIUM SERUM 4.4 MEQ/L (3.5-5.1); SODIUM LEVEL 139 MEQ/L (136-145); TOTAL PROTEIN 7.6 GM/DL (6.4-8.2)
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
[2020-10-18] MEDS ORDERED: LIDOCAINE 1% MDV 20ML VIAL SC ONE (21:10)
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
[2020-10-18 22:50] VITALS: BP 156/66
--- NOTE | 2020-10-19 06:30 | ED PDOC ---
Post-Departure Follow-Up dr trujillo faxed fomral read of ct chest, ct c/t/ls spine for fu David Tubbs MD Oct 19, 2020 06:30
== END 2020-10-18 23:10 | disposition home or self-care (01) ==
LOC: M ED 16:49 → EDBD 16:49 → M ED 23:10
DX: S81.812A Laceration without foreign body, left lower leg, initial encounter (principal); S70.311A Abrasion, right thigh, initial encounter; T14.8XXA Other injury of unspecified body region, initial encounter; V23.4XXA Motorcycle driver injured in collision with car, pick-up truck or van in traffic accident, initial encounter; Y92.410 Unspecified street and highway as the place of occurrence of the external cause; M23.91 Unspecified internal derangement of right knee; J45.909 Unspecified asthma, uncomplicated; E78.9 Disorder of lipoprotein metabolism, unspecified
CPT/HCPCS: 12001; 36415; 70450; 71260; 72125; 72128; 72131; 73030; 73521; 73564; 73590; 73610; 74177; 80047; 80048; 80076; 85025; 90471; 90715; 93041; 94760; 96374; 99285; J2270; Q9967

== ENCOUNTER → 2020-11-23 | Outpatient (CLI) | payer MEDICARE, MEDICAID ==
--- NOTE | 2020-11-23 16:07 | REP ---
INDICATION: RT KNEE PAIN. COMPARISON: None. TECHNIQUE: Standing bilateral AP view of the knees FINDINGS: There is a left knee arthroplasty femoral and tibial components appear to be within normal limits. There is advanced right knee medial compartmental narrowing with subchondral sclerosis. Calcifications are seen in the lateral compartment consistent with meniscal calcifications. No acute fracture seen on either side. IMPRESSION: Chronic changes seen bilaterally. <Electronically signed by James Blanton > 11/23/20 [id number]
== END ==
LOC: M SOG 08:11
PROVIDERS: ATTEND Orthopaedic Surgery Adult Reconstructive Orthopaedic Surgery
DX: M25.561 Pain in right knee (principal)

== ENCOUNTER → 2021-03-16 | Outpatient (CLI) | payer MEDICARE, MEDICAID ==
[2021-03-16 17:52] LABS: BASO % 0.6 % (0.0-1.0); EOS # 0.1 10^3/uL (0.0-0.5); EOS % 2.5 % (0.0-3.0); HEMATOCRIT 43.1 % (42.0-52.0); LYMPH % 41.5 % (24.0-44.0); MEAN CORPUSCULAR HEMOGLOBIN 27.3 pg (27.0-33.0); MEAN CORPUSCULAR HGB CONC 32.5 g/dl (32.0-36.5); MONO # 0.6 10^3/uL (0.0-0.8); MONO % 12.3 % (2.0-8.0); NEUTROPHILS % 42.3 % (36.0-66.0); PLATELET COUNT, AUTOMATED 195 10^3/uL (150-450); RED BLOOD COUNT 5.13 10^6/uL (4.30-6.10); WHITE BLOOD COUNT 4.7 10^3/uL (4.0-10.0)
[2021-03-16 18:19] LABS: ALBUMIN 3.5 GM/DL (3.2-5.2); ALT/SGPT 24 U/L (12-78); BILIRUBIN,TOTAL 0.1 MG/DL (0.2-1.0); BLOOD UREA NITROGEN 22 MG/DL (7-18); CALCIUM LEVEL 8.9 MG/DL (8.8-10.2); CARBON DIOXIDE LEVEL 33 MEQ/L (21-32); CHLORIDE LEVEL 104 MEQ/L (98-107); CREATININE FOR GFR 0.86 MG/DL (0.70-1.30); GLOMERULAR FILTRATION RATE > 60.0 (>49); GLUCOSE, FASTING 76 MG/DL (70-100); POTASSIUM SERUM 4.4 MEQ/L (3.5-5.1); SODIUM LEVEL 140 MEQ/L (136-145); TOTAL PROTEIN 7.8 GM/DL (6.4-8.2)
== END ==
LOC: M LAB 16:14
PROVIDERS: ATTEND Family Medicine
DX: Z01.818 Encounter for other preprocedural examination (principal); M17.11 Unilateral primary osteoarthritis, right knee

== ENCOUNTER → 2021-03-16 | Outpatient (CLI) | payer MEDICARE, MEDICAID | LOC: M RAD 16:04 | PROVIDERS: ATTEND Orthopaedic Surgery Adult Reconstructive Orthopaedic Surgery | DX: Z01.818 Encounter for other preprocedural examination (principal); M17.11 Unilateral primary osteoarthritis, right knee ==

== ENCOUNTER → 2021-03-23 | Outpatient (CLI) | payer MEDICARE, MEDICAID ==
[~2021-03-23] MED LIST changes: +PROHANCE 279.3MG/ML 15ML VIAL As Ordered ONE
== END ==
LOC: M RAD 12:47
PROVIDERS: ATTEND Orthopaedic Surgery Adult Reconstructive Orthopaedic Surgery
DX: M89.9 Disorder of bone, unspecified (principal)
CPT/HCPCS: 73720; A9576

== ENCOUNTER → 2021-03-25 | Outpatient (CLI) | payer MEDICARE, MEDICAID ==
[~2021-03-25] MED LIST changes: -PROHANCE 279.3MG/ML 15ML VIAL As Ordered ONE
== END ==
LOC: M LABSMTC 09:15
PROVIDERS: ATTEND Anesthesiology
DX: Z01.818 Encounter for other preprocedural examination (principal); Z11.52 Encounter for screening for COVID-19

== ENCOUNTER → 2021-04-05 | Outpatient (REF) | payer MEDICARE, MEDICAID ==
[~2021-04-05] MED LIST changes: +ASCO50TA PO; +ASPI-551 PO; +COLA100C5 PO; +FERR32TA PO; +PERCOCET PO; +SENN18TA PO
[2021-04-05 17:03] LABS: BASO % 0.9 % (0.0-1.0); EOS # 0.1 10^3/uL (0.0-0.5); EOS % 2.8 % (0.0-3.0); HEMOGLOBIN 13.2 g/dl (13.5-17.5); LYMPH # 1.6 10^3/uL (1.5-5.0); LYMPH % 33.8 % (24.0-44.0); MEAN CORPUSCULAR HEMOGLOBIN 27.2 pg (27.0-33.0); MEAN CORPUSCULAR VOLUME 82.3 fl (80.0-96.0); MONO # 0.7 10^3/uL (0.0-0.8); MONO % 14.7 % (2.0-8.0); NEUTROPHILS # 2.2 10^3/uL (1.5-8.5); NEUTROPHILS % 46.1 % (36.0-66.0); PLATELET COUNT, AUTOMATED 152 10^3/uL (150-450); RED BLOOD COUNT 4.86 10^6/uL (4.30-6.10); WHITE BLOOD COUNT 4.7 10^3/uL (4.0-10.0)
== END ==
LOC: M SHH 15:28
PROVIDERS: ATTEND Orthopaedic Surgery Adult Reconstructive Orthopaedic Surgery
DX: Z00.00 Encounter for general adult medical examination without abnormal findings (principal); R79.9 Abnormal finding of blood chemistry, unspecified

== ENCOUNTER → 2021-04-12 | Outpatient (CLI) | payer MEDICARE, MEDICAID | LOC: M SOG 11:01 | PROVIDERS: ATTEND Orthopaedic Surgery Adult Reconstructive Orthopaedic Surgery | DX: Z96.651 Presence of right artificial knee joint (principal) ==

== ENCOUNTER 2021-06-06 16:03 | Inpatient (IN) | payer MEDICARE, MEDICAID ==
[~2021-06-06] VITALS: Ht 165.1 cm; Wt 68.1 kg
[2021-06-06] MEDS ORDERED: BOOSTRIX/ADACEL VACCINE (DIPHTH/PERTUSS/ACELL/TETANUS) 0.5ML SYR IM ONE (16:15)
[2021-06-06] MEDS ORDERED: ceFAZolin SOD 2 GM in IV 1 EA IV ONE (16:15)
[2021-06-06] MEDS ORDERED: MORPHINE 2 MG/ML 1ML VIAL IV PRN (16:20)
[2021-06-06] MEDS ORDERED: ONDANSETRON 4MG/2ML VIAL IV ONE (16:20)
[2021-06-06] MEDS: MORPHINE 4 MG/ML 1ML VIAL/SYRINGE IV PRN ×2 (16:47→17:10)
[2021-06-06] MEDS ORDERED: DERMABOND TOPICAL SKIN ADHESIVE TOP ONE (16:50)
[2021-06-06] MEDS ORDERED: NS 1,000 ML IV SCH (17:10)
[2021-06-06 17:16] LABS: HEMATOCRIT 43.1 % (42.0-52.0); HEMOGLOBIN 14.1 g/dl (13.5-17.5); MEAN CORPUSCULAR HEMOGLOBIN 27.3 pg (27.0-33.0); MEAN CORPUSCULAR HGB CONC 32.7 g/dl (32.0-36.5); MEAN CORPUSCULAR VOLUME 83.4 fl (80.0-96.0); PLATELET COUNT, AUTOMATED 153 10^3/uL (150-450); RED BLOOD COUNT 5.17 10^6/uL (4.30-6.10); WHITE BLOOD COUNT 6.6 10^3/uL (4.0-10.0)
[2021-06-06 17:20] LABS: INR 1.04
[2021-06-06 17:24] LABS: BLOOD UREA NITROGEN 28 MG/DL (7-18); CALCIUM LEVEL 9.4 MG/DL (8.8-10.2); CARBON DIOXIDE LEVEL 26 MEQ/L (21-32); CHLORIDE LEVEL 108 MEQ/L (98-107); CREATININE FOR GFR 1.19 MG/DL (0.70-1.30); GLOMERULAR FILTRATION RATE > 60.0 (>49); GLUCOSE, FASTING 147 MG/DL (70-100); SODIUM LEVEL 141 MEQ/L (136-145)
[2021-06-06] MEDS ORDERED: fentaNYL 100 MCG/2 ML INJECTION As Ordered ONE (18:04)
[2021-06-06] MEDS ORDERED: dexameTHASONE 4 MG/ML 1ML VIAL (J1100 PER 1MG) As Ordered ONE (18:04)
[2021-06-06] MEDS ORDERED: LIDOCAINE 2% 100MG/5ML SDV (FOR ANES.) As Ordered ONE (18:04)
[2021-06-06] MEDS ORDERED: ONDANSETRON 4MG/2ML VIAL As Ordered ONE (18:04)
[2021-06-06] MEDS ORDERED: MIDAZOLAM INJ 2MG/2ML VIAL (J2250 PER 1MG) As Ordered ONE (18:04)
[2021-06-06] MEDS ORDERED: propofoL 200 MG/20 ML VIAL As Ordered ONE ×2 (18:04→19:28)
[2021-06-06] MEDS ORDERED: HYDROMORPHONE HCL 0.5 MG/ 0.5 ML SYRINGE (J1170 PER 1) IV PRN ×2 (18:05→18:40)
[2021-06-06] MEDS ORDERED: ceFAZolin SOD 1 GM in D5W MINI-BAG PLUS 50 ML IV STA (18:08)
[2021-06-06 18:16] LABS: RSV AMPLIFICATION NEGATIVE (NEGATIVE)
[2021-06-06] MEDS ORDERED: ACETAMINOPHEN TAB 650MG DOSE (2X325MG) PO PRN (18:35)
[2021-06-06] MEDS ORDERED: MAALOX 30 ML SUSP *UDC PO PRN (18:35)
[2021-06-06] MEDS ORDERED: HOME MED LIST COMPLETE! XX SCH (19:30)
[2021-06-06] MEDS ORDERED: ACETAMINOPHEN 1000MG 100ML IV BTL (OFIRMEV) (J0131 PER 10MG) As Ordered ONE (19:32)
[2021-06-06] MEDS ORDERED: KETOROLAC 60MG 2ML VIAL As Ordered ONE (19:53)
[2021-06-06] MEDS ORDERED: KETOROLAC 30 MG/ML 1ML VIAL IV PRN (19:55)
[2021-06-06] MEDS ORDERED: LR 1,000 ML IV SCH (20:00)
[2021-06-06] MEDS ORDERED: ONDANSETRON 4MG/2ML VIAL IV PRN (20:00)
[2021-06-06] MEDS ORDERED: fentaNYL 100 MCG/2 ML INJECTION IV PRN (20:00)
[2021-06-06 21:00] VITALS: BP 132/105
[2021-06-06 21:15] VITALS: BP 144/106
[2021-06-06 21:30] VITALS: BP 149/104
[2021-06-06] MEDS: DOCUSATE SODIUM 100MG CAPSULE PO SCH (21:37)
[2021-06-06 22:00] VITALS: BP 151/105
[2021-06-06 22:30] VITALS: BP 149/104
[2021-06-06 23:30] VITALS: BP 146/105
[2021-06-07] VITALS (7 sets, daily range): BP systolic 103–145; BP diastolic 62–101
[2021-06-07] MEDS ORDERED: UNRESOLVED CLARIFICATION ENTRY XX SCH (00:01)
[2021-06-07] MEDS: ceFAZolin SOD 1 GM in D5W MINI-BAG PLUS 50 ML IV SCH ×3 (01:47→17:42)
[2021-06-07] MEDS: DOCUSATE SODIUM 100MG CAPSULE PO SCH (08:25)
[2021-06-07 08:41] LABS: ALBUMIN 3.2 GM/DL (3.2-5.2); ALT/SGPT 20 U/L (12-78); BILIRUBIN,TOTAL 0.4 MG/DL (0.2-1.0); BLOOD UREA NITROGEN 25 MG/DL (7-18); CALCIUM LEVEL 9.1 MG/DL (8.8-10.2); CARBON DIOXIDE LEVEL 25 MEQ/L (21-32); CHLORIDE LEVEL 106 MEQ/L (98-107); CREATININE FOR GFR 0.75 MG/DL (0.70-1.30); GLOMERULAR FILTRATION RATE > 60.0 (>49); GLUCOSE, FASTING 127 MG/DL (70-100); MAGNESIUM LEVEL 1.9 MG/DL (1.8-2.4); POTASSIUM SERUM 4.2 MEQ/L (3.5-5.1); SODIUM LEVEL 137 MEQ/L (136-145)
[2021-06-07 09:25] LABS: BASO % 0.1 % (0.0-1.0); HEMATOCRIT 35.7 % (42.0-52.0); LYMPH # 0.8 10^3/uL (1.5-5.0); LYMPH % 9.5 % (24.0-44.0); MEAN CORPUSCULAR HEMOGLOBIN 26.9 pg (27.0-33.0); MEAN CORPUSCULAR HGB CONC 32.5 g/dl (32.0-36.5); MEAN CORPUSCULAR VOLUME 82.8 fl (80.0-96.0); MONO # 0.9 10^3/uL (0.0-0.8); MONO % 10.3 % (2.0-8.0); NEUTROPHILS # 6.9 10^3/uL (1.5-8.5); NEUTROPHILS % 79.5 % (36.0-66.0); PLATELET COUNT, AUTOMATED 126 10^3/uL (150-450); RED BLOOD COUNT 4.31 10^6/uL (4.30-6.10); WHITE BLOOD COUNT 8.7 10^3/uL (4.0-10.0)
[2021-06-07 09:34] LABS: HEMOGLOBIN 11.6 g/dl (13.5-17.5)
[2021-06-07] MEDS ORDERED: oxyCODONE 5MG TAB PO PRN (10:00)
[2021-06-07 11:58] LABS: HEPATITIS B CORE ANTIBODY IGM NEGATIVE (NEGATIVE); HEPATITIS B SURFACE ANTIGEN NEGATIVE (NEGATIVE)
[2021-06-07] MEDS ORDERED: CEPH500C PO (17:58)
[2021-06-07] MEDS ORDERED: ACET1TAB55 PO (17:58)
[2021-06-07] MEDS ORDERED: OXYC-517 PO (17:58)
== END 2021-06-07 18:40 | disposition home or self-care (01) | DRG 906 ==
LOC: M ED 16:03 → M ED INP 18:33 → M ED 18:38 → M MS5PR 18:58
PROVIDERS: ADMIT Family Medicine; ATTEND Family Medicine
PROC: 0LD70ZZ Extraction of Right Hand Tendon, Open Approach (ICD-10-PCS; principal; 2021-06-06 18:30)
DX: S69.81XA Other specified injuries of right wrist, hand and finger(s), initial encounter (principal); J45.909 Unspecified asthma, uncomplicated; F32.A Depression, unspecified; F10.11 Alcohol abuse, in remission; E55.9 Vitamin D deficiency, unspecified; G47.33 Obstructive sleep apnea (adult) (pediatric); I16.0 Hypertensive urgency; M19.041 Primary osteoarthritis, right hand; M19.042 Primary osteoarthritis, left hand; V86.55XA Driver of 3- or 4- wheeled all-terrain vehicle (ATV) injured in nontraffic accident, initial encounter; Y92.017 Garden or yard in single-family (private) house as the place of occurrence of the external cause; Y93.89 Activity, other specified; Y99.8 Other external cause status; Z96.653 Presence of artificial knee joint, bilateral; Z79.82 Long term (current) use of aspirin; Z86.010 Personal history of colon polyps; Z79.899 Other long term (current) drug therapy; Z87.891 Personal history of nicotine dependence

== ENCOUNTER 2021-08-25 11:07 | Emergency (ER) | payer MEDICARE, MEDICAID ==
[~2021-08-25] VITALS: Ht 165.1 cm; Wt 74.7 kg
[~2021-08-25 11:07] MED LIST changes: +ACET1TAB55 PO; +CEPH500C PO; +OXYC-517 PO
[2021-08-25] MEDS ORDERED: LIDOCAINE 2% MDV 20ML VIAL SC ONE (13:25)
[2021-08-25] MEDS ORDERED: BACITRACIN OINTMENT 30GM TUBE TOP ONE (13:55)
[2021-08-25 14:10] VITALS: BP 144/94
== END 2021-08-25 14:10 | disposition home or self-care (01) ==
LOC: M ED 11:07
DX: S61.412A Laceration without foreign body of left hand, initial encounter (principal); W26.8XXA Contact with other sharp object(s), not elsewhere classified, initial encounter; R03.0 Elevated blood-pressure reading, without diagnosis of hypertension

== ENCOUNTER → 2021-10-22 | Outpatient (CLI) | payer MEDICARE, MEDICAID ==
[2021-10-22 08:38] LABS: HEMATOCRIT 46.1 % (42.0-52.0); MEAN CORPUSCULAR HEMOGLOBIN 26.5 pg (27.0-33.0); MEAN CORPUSCULAR HGB CONC 32.5 g/dl (32.0-36.5); MEAN CORPUSCULAR VOLUME 81.6 fl (80.0-96.0); PLATELET COUNT, AUTOMATED 214 10^3/uL (150-450); RED BLOOD COUNT 5.65 10^6/uL (4.30-6.10)
[2021-10-22 09:35] LABS: ALBUMIN 3.5 GM/DL (3.2-5.2); ALT/SGPT 18 U/L (12-78); BILIRUBIN,TOTAL 0.2 MG/DL (0.2-1.0); BLOOD UREA NITROGEN 27 MG/DL (7-18); C REACTIVE PROTEIN QUANTITATIV 0.47 MG/DL (0.00-0.30); CALCIUM LEVEL 9.5 MG/DL (8.8-10.2); CARBON DIOXIDE LEVEL 31 MEQ/L (21-32); CHLORIDE LEVEL 101 MEQ/L (98-107); CHOLESTEROL LEVEL 205 MG/DL (<200); CHOLESTEROL RISK RATIO 4.555 (<5); CREATININE FOR GFR 0.94 MG/DL (0.70-1.30); FREE T4 0.88 NG/DL (0.76-1.46); GLOMERULAR FILTRATION RATE > 60.0 (>49); GLUCOSE, FASTING 88 MG/DL (70-100); HDL CHOLESTEROL 45 MG/DL (>40); LDL CHOLESTEROL 104 MG/DL (<100); NON-HDL-C 160 MG/DL; POTASSIUM SERUM 4.9 MEQ/L (3.5-5.1); SODIUM LEVEL 134 MEQ/L (136-145); TOTAL PROTEIN 7.4 GM/DL (6.4-8.2); TRIGLYCERIDES LEVEL 278 MG/DL (<150)
[2021-10-22 09:36] LABS: CREATININE, URINE 85.2 MG/DL; MALB URINE SIEMENS 10.4 MG/L; MAU/CREAT RATIO 12.2 MCG/MG (0.0-30.0)
[2021-10-22 09:53] LABS: HEMOGLOBIN A1c 5.9 %
[2021-10-22 10:05] LABS: TOTAL 25(OH) VITAMIN D 36.7 NG/ML (30.0-100.0); VITAMIN B12 LEVEL 519 PG/ML (247-911)
== END ==
LOC: M LAB 07:44
PROVIDERS: ATTEND Internal Medicine Hematology
DX: Z00.00 Encounter for general adult medical examination without abnormal findings (principal); Z79.899 Other long term (current) drug therapy
CPT/HCPCS: 36415; 80053; 80061; 82043; 82306; 82607; 83036; 84439; 84443; 85027; 86140; G0103

== ENCOUNTER 2021-12-02 14:12 | Inpatient (IN) | payer MEDICARE, MEDICAID ==
[~2021-12-02] VITALS: Ht 165.1 cm; Wt 73.5 kg
[2021-12-02 14:44] LABS: BASO % 0.7 % (0.0-1.0); EOS # 0.1 10^3/uL (0.0-0.5); EOS % 1.4 % (0.0-3.0); HEMATOCRIT 40.5 % (42.0-52.0); LYMPH # 1.6 10^3/uL (1.5-5.0); MEAN CORPUSCULAR HEMOGLOBIN 26.4 pg (27.0-33.0); MEAN CORPUSCULAR HGB CONC 32.1 g/dl (32.0-36.5); MEAN CORPUSCULAR VOLUME 82.3 fl (80.0-96.0); MONO # 1.1 10^3/uL (0.0-0.8); MONO % 25.6 % (2.0-8.0); NEUTROPHILS # 1.5 10^3/uL (1.5-8.5); NEUTROPHILS % 34.8 % (36.0-66.0); PLATELET COUNT, AUTOMATED 187 10^3/uL (150-450); RED BLOOD COUNT 4.92 10^6/uL (4.30-6.10); WHITE BLOOD COUNT 4.4 10^3/uL (4.0-10.0)
[2021-12-02 15:22] LABS: ACETAMINOPHEN LEVEL < 2.0 UG/ML (10.0-30.0); ALBUMIN 3.3 GM/DL (3.2-5.2); ALT/SGPT 53 U/L (12-78); BILIRUBIN,DIRECT 0.1 MG/DL (0.0-0.2); BILIRUBIN,TOTAL 0.3 MG/DL (0.2-1.0); BLOOD UREA NITROGEN 33 MG/DL (7-18); CALCIUM LEVEL 8.5 MG/DL (8.8-10.2); CARBON DIOXIDE LEVEL 29 MEQ/L (21-32); CHLORIDE LEVEL 105 MEQ/L (98-107); CREATININE FOR GFR 0.99 MG/DL (0.70-1.30); ETHYL ALCOHOL (ETHANOL) 0.005 % (0.000-0.010); GLOMERULAR FILTRATION RATE > 60.0 (>49); GLUCOSE, FASTING 115 MG/DL (70-100); POTASSIUM SERUM 3.7 MEQ/L (3.5-5.1); SALICYLATE LEVEL 2.6 MG/DL (5.0-30.0); SODIUM LEVEL 139 MEQ/L (136-145); TOTAL PROTEIN 7.1 GM/DL (6.4-8.2)
[2021-12-02 15:25] LABS: RSV AMPLIFICATION NEGATIVE (NEGATIVE)
[2021-12-02] MEDS ORDERED: LIDOCAINE W/EPINEPHRINE 1% 20ML VIAL SC ONE (15:55)
[2021-12-02 20:04] LABS: AMPHETAMINES LEVEL URINE POSITIVE (NEGATIVE); BARBITURATES URINE NEGATIVE (NEGATIVE); BENZODIAZEPINES URINE NEGATIVE (NEGATIVE); CANNABINOIDS URINE POSITIVE (NEGATIVE); COCAINE METABOLITE URINE NEGATIVE (NEGATIVE); METHADONE URINE NEGATIVE (NEGATIVE); OPIATES URINE NEGATIVE (NEGATIVE); PHENCYCLIDINE URINE NEGATIVE (NEGATIVE)
[2021-12-02] MEDS ORDERED: HOME MED LIST COMPLETE! XX SCH (20:35)
[2021-12-02] MEDS ORDERED: MOM 30ML SUSPENSION UDC PO PRN (20:35)
[2021-12-02 21:00] VITALS: BP 123/70
[2021-12-02] MEDS ORDERED: THIAMINE 100 MG TAB PO SCH (21:00)
[2021-12-03] MEDS ORDERED: HEPARIN SOD (PORCINE) 5000UNITS/ML 1ML VIAL/SYRINGE SC SCH (06:00)
[2021-12-03 06:30] LABS: HEMATOCRIT 42.2 % (42.0-52.0); HEMOGLOBIN 13.9 g/dl (13.5-17.5); MEAN CORPUSCULAR HEMOGLOBIN 26.8 pg (27.0-33.0); MEAN CORPUSCULAR HGB CONC 32.9 g/dl (32.0-36.5); MEAN CORPUSCULAR VOLUME 81.3 fl (80.0-96.0); PLATELET COUNT, AUTOMATED 183 10^3/uL (150-450); RED BLOOD COUNT 5.19 10^6/uL (4.30-6.10); WHITE BLOOD COUNT 5.3 10^3/uL (4.0-10.0)
[2021-12-03 06:59] LABS: ALBUMIN 3.2 GM/DL (3.2-5.2); ALT/SGPT 40 U/L (12-78); BILIRUBIN,TOTAL 0.4 MG/DL (0.2-1.0); BLOOD UREA NITROGEN 24 MG/DL (7-18); CALCIUM LEVEL 8.8 MG/DL (8.8-10.2); CARBON DIOXIDE LEVEL 28 MEQ/L (21-32); CHLORIDE LEVEL 102 MEQ/L (98-107); CREATININE FOR GFR 0.84 MG/DL (0.70-1.30); GLOMERULAR FILTRATION RATE > 60.0 (>49); GLUCOSE, FASTING 110 MG/DL (70-100); MAGNESIUM LEVEL 1.9 MG/DL (1.8-2.4); POTASSIUM SERUM 3.7 MEQ/L (3.5-5.1); SODIUM LEVEL 136 MEQ/L (136-145)
[2021-12-03] MEDS ORDERED: FOLIC ACID 1MG TAB PO SCH (09:00)
[2021-12-03] MEDS ORDERED: MULTIVITAMINS/MINERALS THERAP 1 TAB PO SCH (09:00)
== END 2021-12-03 08:00 | disposition left against medical advice (07) | DRG 918 ==
LOC: M ED 14:12 → M ED INP 20:34 → ENRESERV 12-03 07:00
PROVIDERS: ADMIT Family Medicine; ATTEND Internal Medicine
PROC: 0HQ1XZZ Repair Face Skin, External Approach (ICD-10-PCS; principal; 2021-12-02)
DX: T40.1X1A Poisoning by heroin, accidental (unintentional), initial encounter (principal); T43.651A Poisoning by methamphetamines accidental (unintentional), initial encounter; F10.10 Alcohol abuse, uncomplicated; F32.A Depression, unspecified; J45.909 Unspecified asthma, uncomplicated; Z96.653 Presence of artificial knee joint, bilateral; Z90.49 Acquired absence of other specified parts of digestive tract; Z87.891 Personal history of nicotine dependence; S01.111A Laceration without foreign body of right eyelid and periocular area, initial encounter; F11.10 Opioid abuse, uncomplicated; F15.10 Other stimulant abuse, uncomplicated; Y92.009 Unspecified place in unspecified non-institutional (private) residence as the place of occurrence of the external cause; W19.XXXA Unspecified fall, initial encounter; Y93.9 Activity, unspecified; Y99.9 Unspecified external cause status

== ENCOUNTER → 2023-04-05 | Outpatient (CLI) | payer MEDICARE ==
[~2023-04-05] MED LIST changes: +ALBU8.5H INH; +ALPR0.25 PO; +AMLO1TAB24 PO; +Artificial Tears Op Oint OU; +FERR1TAB8 PO; +FLUO20CA22 PO; +FOLI1TAB11 PO; +LEVO25TA5 PO; +METO1TAB87 PO; +OLAN1TAB16 PO; +OLAN2.5T25 PO; +QUET1TAB17 PO; +SENN-111 PO; -SENN18TA PO; +SORE15LO PO; +TRAZ-252 PO; +VITMTA PO; +med rec comment
== END ==
LOC: M OUTALCOH 07:36
PROVIDERS: ATTEND Psychiatry & Neurology Psychiatry
DX: F10.10 Alcohol abuse, uncomplicated (principal)

== ENCOUNTER 2023-04-12 10:23 | Outpatient (RCR) | payer MEDICARE | END 2023-05-07 | LOC: M OUTALCOH 10:23 | PROVIDERS: ATTEND Psychiatry & Neurology Psychiatry | DX: F15.20 Other stimulant dependence, uncomplicated (principal) ==

== ENCOUNTER 2023-04-23 08:11 | Emergency (ER) | payer MEDICARE ==
[~2023-04-23] VITALS: Ht 165.1 cm; Wt 78.7 kg
[2023-04-23] MEDS: KETOROLAC 30 MG/ML 1ML VIAL IV ONE (11:01)
[2023-04-23 11:31] LABS: BASO % 0.3 % (0.0-1.0); EOS # 0.1 10^3/uL (0.0-0.5); EOS % 0.8 % (0.0-3.0); HEMATOCRIT 41.5 % (42.0-52.0); HEMOGLOBIN 14.1 g/dl (13.5-17.5); LYMPH # 1.2 10^3/uL (1.5-5.0); LYMPH % 16.9 % (24.0-44.0); MEAN CORPUSCULAR HEMOGLOBIN 28.4 pg (27.0-33.0); MEAN CORPUSCULAR VOLUME 83.5 fl (80.0-96.0); MONO # 1.1 10^3/uL (0.0-0.8); MONO % 14.6 % (2.0-8.0); NEUTROPHILS # 4.9 10^3/uL (1.5-8.5); PLATELET COUNT, AUTOMATED 235 10^3/uL (150-450); RED BLOOD COUNT 4.97 10^6/uL (4.30-6.10); WHITE BLOOD COUNT 7.2 10^3/uL (4.0-10.0)
[2023-04-23 11:37] LABS: ERYTHROCYTE SEDIMENTATION RATE 98 mm/hr (0-20)
[2023-04-23 12:05] LABS: BLOOD UREA NITROGEN 19 MG/DL (9-23); CALCIUM LEVEL 8.8 MG/DL (8.3-10.6); CARBON DIOXIDE LEVEL 29 MMOL/L (20-31); CHLORIDE LEVEL 101 MMOL/L (98-107); GLOMERULAR FILTRATION RATE > 60.0 (>49); GLUCOSE, FASTING 120 MG/DL (74-106); POTASSIUM SERUM 4.5 MMOL/L (3.5-5.1); SODIUM LEVEL 134 MMOL/L (136-145)
[2023-04-23] MEDS ORDERED: PROHANCE 279.3MG/ML 15ML VIAL As Ordered ONE (13:56)
[2023-04-23] MEDS: NS 1,000 ML IV SCH (16:06)
[2023-04-23 18:35] VITALS: BP 128/79; TEMP 98.3; O2SAT 96
== END 2023-04-23 18:40 | disposition short-term general hospital (02) ==
LOC: M ED 08:11
DX: M50.90 Cervical disc disorder, unspecified, unspecified cervical region (principal); M48.02 Spinal stenosis, cervical region; R70.0 Elevated erythrocyte sedimentation rate; R79.82 Elevated C-reactive protein (CRP); F17.210 Nicotine dependence, cigarettes, uncomplicated; Z79.899 Other long term (current) drug therapy
CPT/HCPCS: 72125; 72156; 80048; 85025; 85652; 86140; 87486; 87581; 87633; 87798; 96374; 99284; A9576; J1885

== ENCOUNTER → 2023-05-08 | Outpatient (CLI) | payer MEDICARE ==
[2023-05-08 11:14] LABS: BASO # 0.1 10^3/uL (0.0-0.2); BASO % 1.1 % (0.0-1.0); EOS # 0.1 10^3/uL (0.0-0.5); EOS % 1.9 % (0.0-3.0); HEMATOCRIT 44.5 % (42.0-52.0); HEMOGLOBIN 14.8 g/dl (13.5-17.5); LYMPH # 1.7 10^3/uL (1.5-5.0); LYMPH % 36.2 % (24.0-44.0); MEAN CORPUSCULAR HEMOGLOBIN 28.1 pg (27.0-33.0); MEAN CORPUSCULAR HGB CONC 33.3 g/dl (32.0-36.5); MEAN CORPUSCULAR VOLUME 84.4 fl (80.0-96.0); MONO # 0.5 10^3/uL (0.0-0.8); MONO % 9.6 % (2.0-8.0); NEUTROPHILS # 2.4 10^3/uL (1.5-8.5); NEUTROPHILS % 50.1 % (36.0-66.0); PLATELET COUNT, AUTOMATED 289 10^3/uL (150-450); RED BLOOD COUNT 5.27 10^6/uL (4.30-6.10); WHITE BLOOD COUNT 4.7 10^3/uL (4.0-10.0)
[2023-05-08 11:39] LABS: ALBUMIN 3.9 G/DL (3.2-5.2); ALKALINE PHOSPHATASE 107 U/L (46-116); ALT/SGPT 16 U/L (7.0-40); AST/SGOT 12 U/L (<34); BILIRUBIN,TOTAL 0.2 MG/DL (0.3-1.2); BLOOD UREA NITROGEN 18 MG/DL (9-23); CALCIUM LEVEL 9.9 MG/DL (8.3-10.6); CARBON DIOXIDE LEVEL 30 MMOL/L (20-31); CHLORIDE LEVEL 101 MMOL/L (98-107); CREATININE FOR GFR 0.83 MG/DL (0.70-1.30); GLOMERULAR FILTRATION RATE > 60.0 (>49); GLUCOSE, FASTING 99 MG/DL (74-106); POTASSIUM SERUM 4.3 MMOL/L (3.5-5.1); SODIUM LEVEL 135 MMOL/L (136-145); TOTAL PROTEIN 7.9 G/DL (5.7-8.2)
== END ==
LOC: M LAB 10:39
PROVIDERS: ATTEND Internal Medicine Infectious Disease
DX: M46.42 Discitis, unspecified, cervical region (principal)

== ENCOUNTER → 2023-05-19 | Outpatient (CLI) | payer MEDICARE | LOC: M OUTALCOH 10:00 | PROVIDERS: ATTEND Psychiatry & Neurology Psychiatry | DX: F15.20 Other stimulant dependence, uncomplicated (principal); F17.200 Nicotine dependence, unspecified, uncomplicated ==

== ENCOUNTER → 2023-06-06 | Outpatient (RCR) | payer MEDICARE | LOC: M OUTALCOH 05-19 13:36 | PROVIDERS: ATTEND Psychiatry & Neurology Psychiatry | DX: F15.20 Other stimulant dependence, uncomplicated (principal); F17.200 Nicotine dependence, unspecified, uncomplicated ==

== ENCOUNTER → 2023-07-05 | Outpatient (CLI) | payer MEDICARE ==
[2023-07-05 08:46] LABS: BASO % 0.9 % (0.0-1.0); EOS # 0.1 10^3/uL (0.0-0.5); EOS % 2.2 % (0.0-3.0); HEMATOCRIT 45.2 % (42.0-52.0); HEMOGLOBIN 15.1 g/dl (13.5-17.5); LYMPH # 1.4 10^3/uL (1.5-5.0); LYMPH % 44.3 % (24.0-44.0); MEAN CORPUSCULAR HEMOGLOBIN 28.1 pg (27.0-33.0); MEAN CORPUSCULAR HGB CONC 33.4 g/dl (32.0-36.5); MEAN CORPUSCULAR VOLUME 84.2 fl (80.0-96.0); MONO # 0.4 10^3/uL (0.0-0.8); MONO % 11.1 % (2.0-8.0); NEUTROPHILS # 1.3 10^3/uL (1.5-8.5); NEUTROPHILS % 40.9 % (36.0-66.0); PLATELET COUNT, AUTOMATED 148 10^3/uL (150-450); RED BLOOD COUNT 5.37 10^6/uL (4.30-6.10); WHITE BLOOD COUNT 3.2 10^3/uL (4.0-10.0)
[2023-07-05 09:05] LABS: HEMOGLOBIN A1c 5.5 % (4.0-6.0)
[2023-07-05 09:14] LABS: PSA SCREENING 0.44 NG/ML (< 4.00)
[2023-07-05 09:14] LABS: CREATININE, URINE 125.7 MG/DL; MALB URINE SIEMENS < 3.0 MG/L; MAU/CREAT RATIO 2.3 MCG/MG (0.0-30.0)
[2023-07-05 09:17] LABS: C REACTIVE PROTEIN QUANTITATIV < 0.40 MG/DL (<1.0)
[2023-07-05 09:18] LABS: FREE T4 1.23 NG/DL (0.89-1.76); THYROID STIMULATING HORMONE 3.018 uIU/ML (0.55-4.78)
[2023-07-05 09:19] LABS: TOTAL 25(OH) VITAMIN D 30.6 NG/ML (20.0-100.0)
[2023-07-05 09:20] LABS: VITAMIN B12 LEVEL 448 PG/ML (211-911)
[2023-07-05 09:26] LABS: ALBUMIN 3.5 G/DL (3.2-5.2); ALKALINE PHOSPHATASE 97 U/L (46-116); ALT/SGPT 14 U/L (7.0-40); AST/SGOT 9 U/L (<34); BILIRUBIN,TOTAL 0.3 MG/DL (0.3-1.2); BLOOD UREA NITROGEN 22 MG/DL (9-23); CALCIUM LEVEL 8.8 MG/DL (8.3-10.6); CARBON DIOXIDE LEVEL 31 MMOL/L (20-31); CHLORIDE LEVEL 108 MMOL/L (98-107); CHOLESTEROL LEVEL 159 MG/DL (<200); CHOLESTEROL RISK RATIO 3.64 (<5); CREATININE FOR GFR 0.84 MG/DL (0.70-1.30); GLOMERULAR FILTRATION RATE > 60.0 (>49); GLUCOSE, FASTING 83 MG/DL (74-106); HDL CHOLESTEROL 43.6 MG/DL (>40); LDL CHOLESTEROL 89.8 MG/DL (<100); NON-HDL-C 115.4 MG/DL; POTASSIUM SERUM 4.9 MMOL/L (3.5-5.1); SODIUM LEVEL 141 MMOL/L (136-145); TOTAL PROTEIN 6.8 G/DL (5.7-8.2); TRIGLYCERIDES LEVEL 128 MG/DL (<150)
== END ==
LOC: M LAB 07:31
PROVIDERS: ATTEND Internal Medicine Hematology
DX: F17.211 Nicotine dependence, cigarettes, in remission (principal); E07.9 Disorder of thyroid, unspecified; Z12.5 Encounter for screening for malignant neoplasm of prostate; E78.00 Pure hypercholesterolemia, unspecified
CPT/HCPCS: 36415; 80053; 80061; 82043; 82306; 82607; 83036; 83525; 84439; 84443; 85025; 86140; G0103

== ENCOUNTER → 2023-07-07 | Outpatient (RCR) | payer MEDICARE ==
[~2023-07-07] MED LIST changes: +FLUO-365 PO; -FLUO20CA22 PO
== END ==
LOC: M OUTALCOH 06-12 16:12
PROVIDERS: ATTEND Psychiatry & Neurology Psychiatry
DX: F15.20 Other stimulant dependence, uncomplicated (principal); F17.200 Nicotine dependence, unspecified, uncomplicated

== ENCOUNTER 2023-08-04 14:00 | Outpatient (RCR) | payer MEDICARE | END 2023-08-06 | LOC: M OUTALCOH 14:00 | PROVIDERS: ATTEND Psychiatry & Neurology Psychiatry | DX: F15.20 Other stimulant dependence, uncomplicated (principal); F17.200 Nicotine dependence, unspecified, uncomplicated ==

== ENCOUNTER 2023-09-04 16:00 | Outpatient (RCR) | payer MEDICARE | END 2023-09-06 | LOC: M OUTALCOH 16:00 | PROVIDERS: ATTEND Psychiatry & Neurology Psychiatry | DX: F15.20 Other stimulant dependence, uncomplicated (principal); F17.200 Nicotine dependence, unspecified, uncomplicated ==

== ENCOUNTER → 2023-11-16 | Outpatient (CLI) | payer MEDICARE ==
[~2023-11-16] MED LIST changes: -OLAN2.5T25 PO; +OLAN2.5T53 PO; -SENN-111 PO; +SENN-165 PO
== END ==
LOC: M OUTALCOH 12:51
PROVIDERS: ATTEND Psychiatry & Neurology Psychiatry
DX: F15.20 Other stimulant dependence, uncomplicated (principal); F17.200 Nicotine dependence, unspecified, uncomplicated

== ENCOUNTER 2023-11-20 09:28 | Emergency (ER) | payer MEDICARE ==
[~2023-11-20] VITALS: Ht 165.1 cm; Wt 75.9 kg
[2023-11-20 12:10] LABS: BASO % 0.4 % (0.0-1.0); EOS # 0.1 10^3/uL (0.0-0.5); EOS % 0.6 % (0.0-3.0); HEMATOCRIT 35.8 % (42.0-52.0); HEMOGLOBIN 11.8 g/dl (13.5-17.5); LYMPH # 1.6 10^3/uL (1.5-5.0); LYMPH % 20.3 % (24.0-44.0); MEAN CORPUSCULAR HEMOGLOBIN 27.4 pg (27.0-33.0); MEAN CORPUSCULAR VOLUME 83.1 fl (80.0-96.0); MONO # 1.1 10^3/uL (0.0-0.8); MONO % 13.9 % (2.0-8.0); NEUTROPHILS % 64.2 % (36.0-66.0); PLATELET COUNT, AUTOMATED 322 10^3/uL (150-450); RED BLOOD COUNT 4.31 10^6/uL (4.30-6.10); WHITE BLOOD COUNT 7.7 10^3/uL (4.0-10.0)
[2023-11-20 12:52] LABS: BLOOD UREA NITROGEN 23 MG/DL (9-23); CALCIUM LEVEL 9.6 MG/DL (8.3-10.6); CARBON DIOXIDE LEVEL 28 MMOL/L (20-31); CHLORIDE LEVEL 99 MMOL/L (98-107); GLOMERULAR FILTRATION RATE > 60.0 (>49); GLUCOSE, FASTING 99 MG/DL (74-106); POTASSIUM SERUM 5.3 MMOL/L (3.5-5.1); SODIUM LEVEL 131 MMOL/L (136-145)
[2023-11-20 13:40] LABS: ERYTHROCYTE SEDIMENTATION RATE 85 mm/hr (0-20)
[2023-11-20 15:12] VITALS: O2SAT 97
[2023-11-20 18:31] VITALS: BP 122/79; TEMP 99.1
== END 2023-11-20 18:36 | disposition short-term general hospital (02) ==
LOC: M ED 09:28
DX: T88.9XXA Complication of surgical and medical care, unspecified, initial encounter (principal); F17.210 Nicotine dependence, cigarettes, uncomplicated; Z79.899 Other long term (current) drug therapy
CPT/HCPCS: 36415; 73564; 80048; 85025; 85652; 86140; 87040; 93971; 99284; G0463

== ENCOUNTER 2024-03-02 22:33 | Inpatient (IN) | payer MEDICARE ==
[~2024-03-02] VITALS: Ht 165.1 cm; Wt 77.3 kg
[~2024-03-02 22:33] MED LIST changes: -ADV100INH INH; -ADV250INH INH; +ADVA1AER8 INH; +ADVA1AER9 INH
[2024-03-02 23:17] LABS: HEMATOCRIT 39.9 % (42.0-52.0); HEMOGLOBIN 13.2 g/dl (13.5-17.5); MEAN CORPUSCULAR HEMOGLOBIN 25.6 pg (27.0-33.0); MEAN CORPUSCULAR HGB CONC 33.1 g/dl (32.0-36.5); MEAN CORPUSCULAR VOLUME 77.3 fl (80.0-96.0); PLATELET COUNT, AUTOMATED 396 10^3/uL (150-450); RED BLOOD COUNT 5.16 10^6/uL (4.30-6.10); WHITE BLOOD COUNT 8.4 10^3/uL (4.0-10.0)
[2024-03-02 23:38] LABS: ETHYL ALCOHOL (ETHANOL) < 0.003 % (0.000-0.010)
[2024-03-02 23:40] LABS: ALBUMIN 3.7 G/DL (3.2-5.2); ALKALINE PHOSPHATASE 144 U/L (40-129); ALT/SGPT 10 U/L (7.0-40); AST/SGOT 15 U/L (<34); BILIRUBIN,DIRECT < 0.1 MG/DL (<0.4); BILIRUBIN,TOTAL 0.2 MG/DL (0.3-1.2); BLOOD UREA NITROGEN 31 MG/DL (9-23); CALCIUM LEVEL 9.5 MG/DL (8.3-10.6); CARBON DIOXIDE LEVEL 27 MMOL/L (20-31); CHLORIDE LEVEL 103 MMOL/L (98-107); CREATININE FOR GFR 1.33 MG/DL (0.70-1.30); GLOMERULAR FILTRATION RATE 57.8 (>49); GLUCOSE, FASTING 110 MG/DL (74-106); SALICYLATE LEVEL < 3.0 MG/DL (<30); SODIUM LEVEL 140 MMOL/L (136-145); TOTAL PROTEIN 8.4 G/DL (5.7-8.2)
[2024-03-02 23:42] LABS: THYROID STIMULATING HORMONE 5.352 uIU/ML (0.55-4.78)
[2024-03-03 01:49] LABS: BARBITURATES URINE NEGATIVE (NEGATIVE); BENZODIAZEPINES URINE NEGATIVE (NEGATIVE); COCAINE METABOLITE URINE NEGATIVE (NEGATIVE); METHADONE URINE NEGATIVE (NEGATIVE); OPIATES URINE NEGATIVE (NEGATIVE); PHENCYCLIDINE URINE NEGATIVE (NEGATIVE)
[2024-03-03 01:53] LABS: AMPHETAMINES LEVEL URINE POSITIVE (NEGATIVE); CANNABINOIDS URINE POSITIVE (NEGATIVE)
[2024-03-03] MEDS ORDERED: LORazepam 1 MG TAB PO PRN (04:10)
[2024-03-03] MEDS ORDERED: IBUPROFEN 400MG TAB PO PRN (04:10)
[2024-03-03] MEDS ORDERED: MAALOX 30 ML SUSP *UDC PO PRN (04:10)
[2024-03-03] MEDS ORDERED: MOM 30ML SUSPENSION UDC PO PRN (04:10)
[2024-03-03] MEDS ORDERED: diphenhydrAMINE 25MG CAP PO PRN (04:10)
[2024-03-03] MEDS ORDERED: ACETAMINOPHEN 325 MG TAB PO PRN (04:10)
[2024-03-03 05:43] VITALS: BP 160/90
[2024-03-03] MEDS: amLODIPine 5 MG TAB PO SCH (05:43)
[2024-03-03] MEDS ORDERED: NICOTINE 14 MG/24 HR TRANSDERMAL TD SCH (09:00)
[2024-03-03] MEDS ORDERED: HOME MED LIST COMPLETE! XX SCH (13:00)
[2024-03-03] MEDS: OLANZapine 5 MG TAB PO SCH (13:49)
[2024-03-03] MEDS: VANICREAM MOISTURIZING SKIN CREAM 113GM TUBE TOP SCH (14:00)
[2024-03-03 16:03] VITALS: BP 129/87; TEMP 98; O2SAT 97
[2024-03-03] MEDS: traZODone 50 MG TAB PO PRN (21:07)
[2024-03-04 06:35] VITALS: BP 113/88; TEMP 98; O2SAT 97
[2024-03-04] MEDS: OLANZapine 10 MG TAB PO SCH (09:45)
[2024-03-04 15:43] VITALS: BP 149/90; TEMP 99; O2SAT 99
[2024-03-05 06:31] VITALS: BP 147/84; TEMP 98.7; O2SAT 99
[2024-03-05] MEDS ORDERED: OLAN1TAB20 PO (09:56)
[2024-03-05] MEDS ORDERED: TRAZ-252 PO (09:56)
== END 2024-03-05 13:46 | disposition home or self-care (01) | DRG 885 ==
LOC: M ED 22:33 → M ED INP 03-03 04:10 → M PSY 03-03 05:50
PROVIDERS: ADMIT Psychiatry & Neurology Neurology; ATTEND Psychiatry & Neurology Psychiatry
DX: F25.9 Schizoaffective disorder, unspecified (principal); R45.851 Suicidal ideations; F32.A Depression, unspecified; Z79.899 Other long term (current) drug therapy; F10.11 Alcohol abuse, in remission; G47.33 Obstructive sleep apnea (adult) (pediatric); E55.9 Vitamin D deficiency, unspecified; I10 Essential (primary) hypertension; Z91.51 Personal history of suicidal behavior; E03.9 Hypothyroidism, unspecified; Z87.891 Personal history of nicotine dependence

== ENCOUNTER 2024-04-29 05:14 | Emergency (ER) | payer MEDICARE ==
[~2024-04-29] VITALS: Ht 165.1 cm; Wt 77.3 kg
[~2024-04-29 05:14] MED LIST changes: +OLAN1TAB20 PO
[2024-04-29 07:59] VITALS: TEMP 97.2; O2SAT 96
[2024-04-29 09:55] LABS: HEMATOCRIT 36.1 % (42.0-52.0); HEMOGLOBIN 11.5 g/dl (13.5-17.5); MEAN CORPUSCULAR HEMOGLOBIN 25.3 pg (27.0-33.0); MEAN CORPUSCULAR HGB CONC 31.9 g/dl (32.0-36.5); MEAN CORPUSCULAR VOLUME 79.5 fl (80.0-96.0); PLATELET COUNT, AUTOMATED 285 10^3/uL (150-450); RED BLOOD COUNT 4.54 10^6/uL (4.30-6.10); WHITE BLOOD COUNT 4.6 10^3/uL (4.0-10.0)
[2024-04-29 09:56] LABS: BLOOD UREA NITROGEN 25 MG/DL (9-23); CALCIUM LEVEL 8.7 MG/DL (8.3-10.6); CARBON DIOXIDE LEVEL 27 MMOL/L (20-31); CHLORIDE LEVEL 104 MMOL/L (98-107); CREATININE FOR GFR 0.84 MG/DL (0.70-1.30); GLOMERULAR FILTRATION RATE > 60.0 (>49); GLUCOSE, FASTING 96 MG/DL (74-106); POTASSIUM SERUM 4.7 MMOL/L (3.5-5.1); SODIUM LEVEL 138 MMOL/L (136-145)
[2024-04-29 11:03] VITALS: BP 109/72
== END 2024-04-29 11:30 | disposition home or self-care (01) ==
LOC: M ED 05:14
DX: F12.10 Cannabis abuse, uncomplicated (principal); B18.8 Other chronic viral hepatitis; J45.909 Unspecified asthma, uncomplicated; F17.210 Nicotine dependence, cigarettes, uncomplicated; F10.10 Alcohol abuse, uncomplicated; Z79.899 Other long term (current) drug therapy

== ENCOUNTER 2024-05-26 23:55 | Inpatient (IN) | payer MEDICARE ==
[~2024-05-26] VITALS: Ht 165.1 cm; Wt 77.3 kg
[2024-05-27 00:55] LABS: HEMATOCRIT 42.2 % (42.0-52.0); HEMOGLOBIN 13.8 g/dl (13.5-17.5); MEAN CORPUSCULAR HEMOGLOBIN 24.8 pg (27.0-33.0); MEAN CORPUSCULAR HGB CONC 32.7 g/dl (32.0-36.5); MEAN CORPUSCULAR VOLUME 75.9 fl (80.0-96.0); PLATELET COUNT, AUTOMATED 331 10^3/uL (150-450); RED BLOOD COUNT 5.56 10^6/uL (4.30-6.10); WHITE BLOOD COUNT 8.1 10^3/uL (4.0-10.0)
[2024-05-27 01:17] LABS: ETHYL ALCOHOL (ETHANOL) 0.005 % (0.000-0.010)
[2024-05-27 01:19] LABS: ALBUMIN 3.6 G/DL (3.2-5.2); ALKALINE PHOSPHATASE 164 U/L (40-129); ALT/SGPT 13 U/L (7.0-40); AST/SGOT 16 U/L (<34); BILIRUBIN,DIRECT 0.1 MG/DL (<0.4); BILIRUBIN,TOTAL 0.4 MG/DL (0.3-1.2); BLOOD UREA NITROGEN 21 MG/DL (9-23); CALCIUM LEVEL 9.7 MG/DL (8.3-10.6); CARBON DIOXIDE LEVEL 28 MMOL/L (20-31); CHLORIDE LEVEL 102 MMOL/L (98-107); CREATININE FOR GFR 1.03 MG/DL (0.70-1.30); GLOMERULAR FILTRATION RATE 81.6 (>49); GLUCOSE, FASTING 110 MG/DL (74-106); POTASSIUM SERUM 4.6 MMOL/L (3.5-5.1); SALICYLATE LEVEL < 3.0 MG/DL (<30); SODIUM LEVEL 138 MMOL/L (136-145); TOTAL PROTEIN 8.3 G/DL (5.7-8.2)
[2024-05-27 01:21] LABS: THYROID STIMULATING HORMONE 3.411 uIU/ML (0.55-4.78)
[2024-05-27 01:27] LABS: BARBITURATES URINE NEGATIVE (NEGATIVE); BENZODIAZEPINES URINE NEGATIVE (NEGATIVE); COCAINE METABOLITE URINE NEGATIVE (NEGATIVE); METHADONE URINE NEGATIVE (NEGATIVE); OPIATES URINE NEGATIVE (NEGATIVE)
[2024-05-27 01:28] LABS: PHENCYCLIDINE URINE NEGATIVE (NEGATIVE)
[2024-05-27 02:03] LABS: AMPHETAMINES LEVEL URINE POSITIVE (NEGATIVE); CANNABINOIDS URINE POSITIVE (NEGATIVE)
[2024-05-27] MEDS ORDERED: MOM 30ML SUSPENSION UDC PO PRN (02:40)
[2024-05-27] MEDS ORDERED: IBUPROFEN 400MG TAB PO PRN (02:40)
[2024-05-27] MEDS ORDERED: ACETAMINOPHEN 325 MG TAB PO PRN (02:40)
[2024-05-27] MEDS ORDERED: MAALOX 30 ML SUSP *UDC PO PRN (02:40)
[2024-05-27] MEDS ORDERED: diphenhydrAMINE 25MG CAP PO PRN (02:40)
[2024-05-27 03:15] VITALS: BP 177/115; TEMP 98.2; O2SAT 98
[2024-05-27 06:19] VITALS: BP 152/100; TEMP 97.1; O2SAT 95
[2024-05-27] MEDS ORDERED: CEPH250T PO (06:39)
[2024-05-27] MEDS ORDERED: TRIA1CR80 TOP (06:39)
[2024-05-27] MEDS ORDERED: HOME MED LIST COMPLETE! XX SCH (06:40)
[2024-05-27] MEDS: NICOTINE 14 MG/24 HR TRANSDERMAL TD SCH (08:57)
[2024-05-27] MEDS ORDERED: OLANZapine ORAL DISINTEGRATING TAB 5MG PO PRN (09:35)
[2024-05-27] MEDS ORDERED: MIRTAZAPINE 7.5MG PER 1/2 TABLET PO PRN (09:35)
[2024-05-27] MEDS: FLUBLOK(EGGFREE) TRIVAL(24-25) VACCINE PF 0.5ML SYRINGE 18YRS & OLDER IM.IMMUN ONE (12:08)
[2024-05-27] MEDS: TRIAMCINOLONE ACET 0.1% OINTMENT 15GM TOP SCH (12:16)
[2024-05-27 14:53] VITALS: BP 147/99; TEMP 97.8; O2SAT 97
[2024-05-27] MEDS: LORazepam 1 MG TAB PO PRN (18:43)
[2024-05-28 06:25] VITALS: BP 135/91; TEMP 96.9; O2SAT 98
[2024-05-28] MEDS: TAMSULOSIN 0.4 MG CAP PO SCH (12:36)
[2024-05-28 14:51] VITALS: BP 106/64; TEMP 97.6; O2SAT 96
[2024-05-28] MEDS: MIRTAZAPINE 7.5MG PER 1/2 TABLET PO SCH (21:07)
[2024-05-28] MEDS: OLANZapine ORAL DISINTEGRATING TAB 5MG PO SCH (21:07)
[2024-05-29 06:42] VITALS: BP 128/60; TEMP 96.8; O2SAT 97
[2024-05-29 15:47] VITALS: BP 111/78; TEMP 97.8; O2SAT 97
[2024-05-30 15:48] VITALS: BP 147/89; TEMP 97.3; O2SAT 100
[2024-05-30] MEDS: traZODone 50 MG TAB PO PRN (20:53)
[2024-05-31] MEDS ORDERED: TAMS1CAP17 PO (11:30)
[2024-05-31] MEDS ORDERED: MIRT-10 PO (11:30)
== END 2024-05-31 13:55 | disposition home or self-care (01) | DRG 881 ==
LOC: M ED 23:55 → M ED INP 05-27 02:36 → M PSY 05-27 03:16
PROVIDERS: ADMIT Psychiatry & Neurology Neurology; ATTEND Psychiatry & Neurology Neurology
DX: F32.9 Major depressive disorder, single episode, unspecified (principal); R45.851 Suicidal ideations; Z96.653 Presence of artificial knee joint, bilateral; F17.210 Nicotine dependence, cigarettes, uncomplicated; J45.909 Unspecified asthma, uncomplicated; G47.33 Obstructive sleep apnea (adult) (pediatric); R26.89 Other abnormalities of gait and mobility; I10 Essential (primary) hypertension; E03.9 Hypothyroidism, unspecified; Z91.51 Personal history of suicidal behavior; Z79.899 Other long term (current) drug therapy

== ENCOUNTER → 2024-06-13 | Outpatient (REF) | payer MEDICARE ==
[~2024-06-13] MED LIST changes: +CEPH250T PO; +MIRT-10 PO; +TAMS1CAP17 PO; +TRIA1CR80 TOP
[2024-06-13 15:12] LABS: INR 0.97; PARTIAL THROMBOPLASTIN TIME 29.2 SECONDS (24.8-34.2); PROTHROMBIN TIME 13.2 SECONDS (12.5-14.5)
[2024-06-13 15:53] LABS: BASO % 0.7 % (0.0-1.0); EOS # 0.1 10^3/uL (0.0-0.5); EOS % 1.8 % (0.0-3.0); HEMATOCRIT 43.3 % (42.0-52.0); HEMATOCRIT 44.5 % (42.0-52.0); HEMOGLOBIN 14.1 g/dl (13.5-17.5); LYMPH # 1.4 10^3/uL (1.5-5.0); LYMPH % 31.3 % (24.0-44.0); MEAN CORPUSCULAR HEMOGLOBIN 24.5 pg (27.0-33.0); MEAN CORPUSCULAR HGB CONC 31.7 g/dl (32.0-36.5); MEAN CORPUSCULAR VOLUME 77.3 fl (80.0-96.0); MONO # 0.5 10^3/uL (0.0-0.8); MONO % 11.8 % (2.0-8.0); NEUTROPHILS # 2.4 10^3/uL (1.5-8.5); NEUTROPHILS % 53.9 % (36.0-66.0); RED BLOOD COUNT 5.76 10^6/uL (4.30-6.10); WHITE BLOOD COUNT 4.4 10^3/uL (4.0-10.0)
[2024-06-13 15:59] LABS: ALBUMIN 3.7 G/DL (3.2-5.2); ALKALINE PHOSPHATASE 140 U/L (40-129); ALT/SGPT 13 U/L (7.0-40); AST/SGOT 17 U/L (<34); BILIRUBIN,TOTAL 0.3 MG/DL (0.3-1.2); BLOOD UREA NITROGEN 23 MG/DL (9-23); CALCIUM LEVEL 9.1 MG/DL (8.3-10.6); CARBON DIOXIDE LEVEL 29 MMOL/L (20-31); CHLORIDE LEVEL 106 MMOL/L (98-107); CHOLESTEROL LEVEL 147 MG/DL (<200); CHOLESTEROL RISK RATIO 2.81 (<5); CREATININE FOR GFR 0.82 MG/DL (0.70-1.30); GLOMERULAR FILTRATION RATE > 90.0 (>49); GLUCOSE, FASTING 89 MG/DL (74-106); HDL CHOLESTEROL 52.2 MG/DL (>40); LDL CHOLESTEROL 79.6 MG/DL (<100); NON-HDL-C 94.8 MG/DL; POTASSIUM SERUM 4.2 MMOL/L (3.5-5.1); SODIUM LEVEL 140 MMOL/L (136-145); TOTAL PROTEIN 8.2 G/DL (5.7-8.2); TRIGLYCERIDES LEVEL 76 MG/DL (<150)
[2024-06-13 16:04] LABS: VITAMIN B12 LEVEL 1338 PG/ML (211-911)
[2024-06-13 16:42] LABS: HEPATITIS C VIRUS ABY INDEX 1.01 INDEX (<0.8)
== END ==
LOC: M SFHCPLAZ 11:20
PROVIDERS: ATTEND Student in an Organized Health Care Education/Training Program
DX: B18.2 Chronic viral hepatitis C (principal); Z01.818 Encounter for other preprocedural examination; F10.21 Alcohol dependence, in remission; I10 Essential (primary) hypertension

== ENCOUNTER 2024-08-16 05:10 | Inpatient (IN) | payer MEDICARE ==
[~2024-08-16] VITALS: Ht 165.1 cm; Wt 77.2 kg
[2024-08-16 05:59] LABS: PLATELET COUNT, AUTOMATED 312 10^3/uL (150-450)
[2024-08-16 06:16] LABS: ETHYL ALCOHOL (ETHANOL) < 0.003 % (0.000-0.010)
[2024-08-16 06:18] LABS: ALT/SGPT 17 U/L (7.0-40); AST/SGOT 19 U/L (<34); CALCIUM LEVEL 8.7 MG/DL (8.3-10.6); CARBON DIOXIDE LEVEL 26 MMOL/L (20-31); CHLORIDE LEVEL 107 MMOL/L (98-107); CREATININE FOR GFR 1.14 MG/DL (0.70-1.30); GLOMERULAR FILTRATION RATE 72.3 (>49); POTASSIUM SERUM 3.8 MMOL/L (3.5-5.1); SALICYLATE LEVEL < 3.0 MG/DL (<30); SODIUM LEVEL 143 MMOL/L (136-145)
[2024-08-16] MEDS ORDERED: CEFA1TAB PO (08:17)
[2024-08-16] MEDS ORDERED: HOME MED LIST COMPLETE! XX SCH (11:20)
[2024-08-16 14:47] LABS: METHADONE URINE NEGATIVE (NEGATIVE); OPIATES URINE NEGATIVE (NEGATIVE); PHENCYCLIDINE URINE NEGATIVE (NEGATIVE)
[2024-08-16 14:48] LABS: BARBITURATES URINE NEGATIVE (NEGATIVE); BENZODIAZEPINES URINE NEGATIVE (NEGATIVE); COCAINE METABOLITE URINE NEGATIVE (NEGATIVE)
[2024-08-16 14:50] LABS: AMPHETAMINES LEVEL URINE POSITIVE (NEGATIVE); CANNABINOIDS URINE POSITIVE (NEGATIVE)
[2024-08-17] MEDS ORDERED: LORazepam 1 MG TAB PO PRN (12:30)
[2024-08-17] MEDS ORDERED: MAALOX 30 ML SUSP *UDC PO PRN (12:30)
[2024-08-17] MEDS ORDERED: MOM 30 ML SUSPENSION UDC PO PRN (12:30)
[2024-08-17] MEDS ORDERED: HALOPERIDOL 5 MG TAB PO PRN (12:30)
[2024-08-17] MEDS ORDERED: IBUPROFEN 400 MG TAB PO PRN (12:30)
[2024-08-17] MEDS ORDERED: OLANZapine 5 MG TAB PO PRN (12:30)
[2024-08-17] MEDS ORDERED: ACETAMINOPHEN 325 MG TAB PO PRN (12:30)
[2024-08-17] MEDS: CEPHALEXIN 500 MG CAP PO STA (13:03)
[2024-08-17 14:15] VITALS: BP 138/90; TEMP 97.7; O2SAT 100
[2024-08-17] MEDS ORDERED: ONDANSETRON 4MG ORAL DISINTEGRATING TAB PO PRN (20:25)
[2024-08-17] MEDS ORDERED: ENTER DRUG NAME HERE (PATIENT'S OWN MED) PO SCH (21:00)
[2024-08-17] MEDS ORDERED: CEFUROXIME 500 MG TAB PO SCH (21:00)
[2024-08-17] MEDS: CEFADROXIL PO SCH (21:39)
[2024-08-18 06:56] VITALS: BP 99/69; TEMP 97.6; O2SAT 96
[2024-08-18] MEDS: NICOTINE 14 MG/24 HR TRANSDERMAL TD SCH (09:00)
[2024-08-18] MEDS: PANTOPRAZOLE 40MG TAB PO SCH (09:00)
[2024-08-18 15:48] VITALS: BP 131/78; TEMP 98; O2SAT 100
[2024-08-18] MEDS: MIRTAZAPINE 15 MG TAB PO SCH (20:01)
[2024-08-19 06:49] VITALS: BP 193/86; TEMP 97.8; O2SAT 96
[2024-08-19 16:22] VITALS: BP 132/76; TEMP 99.2; O2SAT 98
[2024-08-19] MEDS: traZODone 50 MG TAB PO PRN (20:09)
[2024-08-20 06:32] VITALS: BP 138/80; TEMP 98; O2SAT 98
[2024-08-20 15:20] VITALS: BP 147/91; TEMP 97.3; O2SAT 97
[2024-08-21 06:25] VITALS: BP 141/92; TEMP 98.9; O2SAT 98
[2024-08-21] MEDS ORDERED: MIRT-10 PO (07:13)
== END 2024-08-21 14:11 | disposition home or self-care (01) | DRG 885 ==
LOC: M ED 05:10 → M ED INP 08-17 12:29 → M PSY 08-17 13:42
PROVIDERS: ADMIT Internal Medicine; ATTEND Internal Medicine
DX: F33.1 Major depressive disorder, recurrent, moderate (principal); R45.851 Suicidal ideations; F41.9 Anxiety disorder, unspecified; F43.10 Post-traumatic stress disorder, unspecified; Z91.51 Personal history of suicidal behavior; F17.200 Nicotine dependence, unspecified, uncomplicated; Z96.653 Presence of artificial knee joint, bilateral; Z79.2 Long term (current) use of antibiotics

== ENCOUNTER 2024-08-22 16:48 | Inpatient (IN) | payer MEDICARE ==
[~2024-08-22] VITALS: Ht 165.1 cm; Wt 76.6 kg
[~2024-08-22 16:48] MED LIST changes: +CEFA1TAB PO
[2024-08-22 18:29] LABS: BARBITURATES URINE NEGATIVE (NEGATIVE); BENZODIAZEPINES URINE NEGATIVE (NEGATIVE); COCAINE METABOLITE URINE NEGATIVE (NEGATIVE); METHADONE URINE NEGATIVE (NEGATIVE); OPIATES URINE NEGATIVE (NEGATIVE); PHENCYCLIDINE URINE NEGATIVE (NEGATIVE)
[2024-08-22 18:32] LABS: AMPHETAMINES LEVEL URINE POSITIVE (NEGATIVE); CANNABINOIDS URINE POSITIVE (NEGATIVE)
[2024-08-22 18:34] LABS: ETHYL ALCOHOL (ETHANOL) < 0.003 % (0.000-0.010)
[2024-08-22 18:36] LABS: ALT/SGPT 15 U/L (7.0-40); AST/SGOT 20 U/L (<34); CALCIUM LEVEL 9.0 MG/DL (8.3-10.6); CARBON DIOXIDE LEVEL 24 MMOL/L (20-31); CHLORIDE LEVEL 105 MMOL/L (98-107); CREATININE FOR GFR 1.07 MG/DL (0.70-1.30); GLOMERULAR FILTRATION RATE 78.0 (>49); POTASSIUM SERUM 4.1 MMOL/L (3.5-5.1); SALICYLATE LEVEL < 3.0 MG/DL (<30); SODIUM LEVEL 141 MMOL/L (136-145)
[2024-08-22] MEDS ORDERED: MOM 30 ML SUSPENSION UDC PO PRN (19:35)
[2024-08-22] MEDS ORDERED: IBUPROFEN 400 MG TAB PO PRN (19:35)
[2024-08-22] MEDS ORDERED: MAALOX 30 ML SUSP *UDC PO PRN (19:35)
[2024-08-22] MEDS ORDERED: ACETAMINOPHEN 325 MG TAB PO PRN (19:35)
[2024-08-22 20:44] VITALS: BP 154/92; TEMP 97.5; O2SAT 99
[2024-08-22] MEDS: MIRTAZAPINE 15 MG TAB PO SCH (21:00)
[2024-08-23 06:28] VITALS: BP 123/79; TEMP 98; O2SAT 100
[2024-08-23 15:05] VITALS: BP 110/64; TEMP 98.4; O2SAT 98
[2024-08-23] MEDS ORDERED: CEPHALEXIN 500 MG CAP PO SCH (18:00)
[2024-08-23] MEDS: traZODone 50 MG TAB PO PRN (20:01)
[2024-08-23] MEDS: CEFADROXIL PO SCH (20:01)
[2024-08-24 06:07] VITALS: BP 141/66; TEMP 97.3; O2SAT 95
[2024-08-24 14:00] VITALS: BP 127/89; TEMP 98.7; O2SAT 96
[2024-08-25 06:29] VITALS: BP 152/80; TEMP 97.4; O2SAT 98
[2024-08-25 14:30] VITALS: BP 127/70; TEMP 98.4; O2SAT 97
[2024-08-26 06:05] VITALS: BP 158/92; TEMP 98.6; O2SAT 96
[2024-08-26 16:17] VITALS: BP 132/72; TEMP 99.3; O2SAT 95
[2024-08-27 06:45] VITALS: BP 147/82; TEMP 97.9; O2SAT 99
[2024-08-27] MEDS ORDERED: OLAN2.5T53 PO (09:23)
[2024-08-27] MEDS ORDERED: TRAZ-252 PO (09:23)
== END 2024-08-27 11:34 | disposition home or self-care (01) | DRG 885 ==
LOC: M ED 16:48 → M ED INP 19:35 → M PSY 20:37
PROVIDERS: ADMIT Student in an Organized Health Care Education/Training Program; ATTEND Psychiatry & Neurology Psychiatry
DX: F33.2 Major depressive disorder, recurrent severe without psychotic features (principal); F41.9 Anxiety disorder, unspecified; F10.11 Alcohol abuse, in remission; Z91.51 Personal history of suicidal behavior; Z79.2 Long term (current) use of antibiotics; Z96.653 Presence of artificial knee joint, bilateral; Z87.891 Personal history of nicotine dependence; T84.53XD Infection and inflammatory reaction due to internal right knee prosthesis, subsequent encounter

== ENCOUNTER 2024-09-01 14:44 | Emergency (ER) | payer MEDICARE ==
[~2024-09-01] VITALS: Ht 162.6 cm; Wt 80.1 kg
[2024-09-01 15:44] LABS: PLATELET COUNT, AUTOMATED 199 10^3/uL (150-450)
[2024-09-01 16:02] LABS: ETHYL ALCOHOL (ETHANOL) < 0.003 % (0.000-0.010)
[2024-09-01 16:03] LABS: ALT/SGPT 18 U/L (7.0-40); AST/SGOT 27 U/L (<34); CALCIUM LEVEL 9.1 MG/DL (8.3-10.6); CARBON DIOXIDE LEVEL 23 MMOL/L (20-31); CHLORIDE LEVEL 107 MMOL/L (98-107); CREATININE FOR GFR 1.14 MG/DL (0.70-1.30); GLOMERULAR FILTRATION RATE 72.3 (>49); POTASSIUM SERUM 3.7 MMOL/L (3.5-5.1); SALICYLATE LEVEL < 3.0 MG/DL (<30); SODIUM LEVEL 143 MMOL/L (136-145)
[2024-09-01] MEDS ORDERED: TRAZ-252 PO (16:13)
[2024-09-01] MEDS ORDERED: MIRT-88 PO (16:13)
[2024-09-01] MEDS ORDERED: OLAN2.5T53 PO (16:13)
[2024-09-01] MEDS ORDERED: HOME MED LIST COMPLETE! XX SCH (16:15)
[2024-09-01 18:19] LABS: BARBITURATES URINE NEGATIVE (NEGATIVE); BENZODIAZEPINES URINE NEGATIVE (NEGATIVE); COCAINE METABOLITE URINE NEGATIVE (NEGATIVE); METHADONE URINE NEGATIVE (NEGATIVE); OPIATES URINE NEGATIVE (NEGATIVE); PHENCYCLIDINE URINE NEGATIVE (NEGATIVE)
[2024-09-01 18:21] LABS: AMPHETAMINES LEVEL URINE POSITIVE (NEGATIVE); CANNABINOIDS URINE POSITIVE (NEGATIVE)
[2024-09-02 07:15] VITALS: BP 132/89; TEMP 98; O2SAT 99
== END 2024-09-02 10:16 | disposition home or self-care (01) ==
LOC: M ED 14:44
DX: Z76.5 Malingerer [conscious simulation] (principal); F32.A Depression, unspecified; F19.10 Other psychoactive substance abuse, uncomplicated; Z79.899 Other long term (current) drug therapy

== ENCOUNTER 2024-09-23 10:39 | Emergency (ER) | payer MEDICARE ==
[2024-09-23 10:41] VITALS: BP 156/95; TEMP 96.8; O2SAT 100
== END 2024-09-23 13:35 | disposition left against medical advice (07) ==
LOC: M ED 10:39
DX: Z53.21 Procedure and treatment not carried out due to patient leaving prior to being seen by health care provider (principal)

== ENCOUNTER → 2024-09-23 | Outpatient (CLI) | payer MEDICARE ==
[~2024-09-23] MED LIST changes: +MIRT-88 PO
== END ==
LOC: M RAD 13:05
PROVIDERS: ATTEND Student in an Organized Health Care Education/Training Program
DX: Z87.891 Personal history of nicotine dependence (principal)

== ENCOUNTER → 2024-11-18 | Outpatient (CLI) | payer MEDICARE ==
[2024-11-18 14:11] LABS: BASO # 0.0 10^3/uL (0.0-0.2); BASO % 1.1 % (0.0-1.0); EOS # 0.3 10^3/uL (0.0-0.5); EOS % 7.3 % (0.0-3.0); LYMPH # 1.3 10^3/uL (1.5-5.0); LYMPH % 34.8 % (24.0-44.0); MONO # 0.5 10^3/uL (0.0-0.8); MONO % 12.7 % (2.0-8.0); NEUTROPHILS # 1.6 10^3/uL (1.5-8.5); NEUTROPHILS % 43.6 % (36.0-66.0); PLATELET COUNT, AUTOMATED 338 10^3/uL (150-450)
[2024-11-18 14:42] LABS: ALT/SGPT 15.0 U/L (7.0-40); AST/SGOT 21.0 U/L (<34); CALCIUM LEVEL 8.8 MG/DL (8.3-10.6); CARBON DIOXIDE LEVEL 30.0 MMOL/L (20-31); CHLORIDE LEVEL 101.0 MMOL/L (98-107); CREATININE FOR GFR 1.16 MG/DL (0.70-1.30); GLOMERULAR FILTRATION RATE 70.3 (>49); POTASSIUM SERUM 4.4 MMOL/L (3.5-5.1); SODIUM LEVEL 139.0 MMOL/L (136-145)
== END ==
LOC: M LAB 13:40
PROVIDERS: ATTEND Internal Medicine
DX: T84.50XD Infection and inflammatory reaction due to unspecified internal joint prosthesis, subsequent encounter (principal)

== ENCOUNTER → 2025-01-13 | Outpatient (CLI) | payer MEDICARE | LOC: M EKG 10:08 | PROVIDERS: ATTEND Student in an Organized Health Care Education/Training Program | DX: R00.2 Palpitations (principal) ==

== ENCOUNTER → 2025-01-28 | Outpatient (CLI) | payer MEDICARE | LOC: M OUTALCOH 07:19 | PROVIDERS: ATTEND Psychiatry & Neurology Psychiatry | DX: F12.20 Cannabis dependence, uncomplicated (principal); Z72.0 Tobacco use ==

== ENCOUNTER 2025-02-03 15:37 | Outpatient (RCR) | payer MEDICARE | END 2025-02-05 | LOC: M OUTALCOH 15:37 | PROVIDERS: ATTEND Psychiatry & Neurology Psychiatry | DX: F12.20 Cannabis dependence, uncomplicated (principal); Z72.0 Tobacco use ==